=== PATIENT | female | born 1960 | race Caucasian/White ===

== ENCOUNTER 2020-08-26 11:07 | Outpatient (REF) | payer OTHER, SELFPAY ==
--- NOTE | ~2020-08-26 | MM_ITS ---
EXAMINATION: MM SCREENING DIGITAL BREAST TOMOSYNTHESIS, BILATERAL CLINICAL INFORMATION: Screening. Asymptomatic. The lifetime risk of breast cancer based on the Tyrer-Cuzick Model is 4%. COMPARISON: Mammography: 08/28/2019, 08/21/2019, 05/30/2018 (2-D only, [facility]), targeted ultrasound right breast 08/28/2019 TECHNIQUE: Digital breast tomosynthesis is performed in both the craniocaudal and mediolateral oblique views along with computer-aided detection (CAD). Synthesized 2D images are generated from the tomosynthesis. FINDINGS: There are scattered areas of fibroglandular density (ACR BI-RADS breast composition Category b). Parenchymal pattern is similar to prior studies. Again, there are fibrocystic changes right breast mid upper outer quadrant. There is stable intramammary node posterior upper outer left breast. Neither breast shows developing density or interval mass or architectural abnormality or abnormal calcifications. No significant changes. MM/MM tomosynthesis screening BI IMPRESSION: No significant changes from prior studies. ASSESSMENT: BI-RADS 2: Benign RECOMMENDATION: Routine annual mammography screening. This patient's information was entered into a reminder system with a target due date for their next mammogram.
== END 2020-08-26 11:08 | disposition home or self-care (01) ==
LOC: HO.MAMMO 11:07
PROVIDERS: PCP Internal Medicine; Visit Provider Internal Medicine
DX: Z12.31 Encounter for screening mammogram for malignant neoplasm of breast (principal)
CPT/HCPCS: 77063; 77067

== ENCOUNTER 2024-01-24 11:37 | Outpatient (REF) | payer OTHER, SELFPAY ==
[2024-01-24 14:24] LABS: Appearance Urine Clear; Color Urine Yellow; Glucose Urine UA Negative (Negative); Leukocyte Esterase Urine Negative (Negative); MANUAL DIFF FLAG NO; Nitrite Urine Negative (Negative); PH 5.5 (5.0-9.0); Urine Blood Negative (Negative); Urine Ketones Negative (Negative); Urine Protein Negative (Neg-Trace)
[2024-01-24 14:29] LABS: Bacteria Urine None Seen (None Seen); Basophils Percent Auto 0.3 % (0-2); Eosinophils Absolute Auto 0.1 X10*3/uL (0.0-0.4); Eosinophils Percent Auto 0.7 % (0-4); Hematocrit 40.4 % (37.0-47.0); Hemoglobin 13.7 g/dl (12.0-16.0); Hyaline Casts Urine 0-2 /LPF (0-2); Imm Gran Abs Auto 0.02 X10*3/uL (0.00-0.03); Imm Gran Pct Auto 0.3 % (0.0-0.4); Lymphocytes Absolute Auto 2.2 X10*3/uL (1.2-4.9); Lymphocytes Percent Auto 31.2 % (20-40); Mean Corpuscular HGB Conc 33.9 g/dl (31.0-35.0); Mean Corpuscular Hemoglobin 31.5 pg (27.0-33.0); Mean Corpuscular Volume 92.9 fL (80.0-98.0); Mean Platelet Volume 11.9 fL (9.4-12.3); Monocytes Absolute Auto 0.7 X10*3/uL (0.1-1.2); Monocytes Percent Auto 9.8 % (2-11); Neutrophils Absolute Auto 4.1 x10*3/uL (2.0-8.3); Neutrophils Percent Auto 57.7 % (45-73); Platelet Count 268 X10*3/uL (160-400); RBC Urine 0-2 /HPF (0-2); Red Blood Count 4.35 X10*6/uL (4.20-5.50); Red Cell Distribution Width 13.3 % (11.0-16.0); Squamous Epithelial Cell Urine 0-2 /HPF (0-2); WBC Urine 0-5 /HPF (0-5); White Blood Count 7.2 X10*3/uL (4.8-10.8)
[2024-01-24 15:01] LABS: Creatinine Urine 96.66 mg/dL; Microalbum/Creatinine Ratio Ur 47.5 ug/mg cr (<30)
[2024-01-24 15:08] LABS: Alanine Aminotransferase 30 U/L (0-31); Albumin Level 4.3 g/dL (3.5-5.0); Alkaline Phosphatase 66 U/L (39-117); Anion Gap 10 (12-20); Aspartate Amino Transferase 35 U/L (5-31); Bilirubin Total 0.4 mg/dL (0.0-1.0); Blood Urea Nitrogen 20 mg/dL (9-16); Calcium 9.7 mg/dL (8.4-10.2); Carbon Dioxide 27 mmol/L (22-29); Chloride 107 mmol/L (96-108); Cholesterol 229 mg/dL (<200); Estimated Glomerular Filt Rate > 60; Glucose Random 141 mg/dL (60-115); HDL Cholesterol 46 mg/dL (>40); LDL Cholesterol Calculated 107 mg/dL (<100); Potassium 3.9 mmol/L (3.3-5.1); Sodium 140 mmol/L (135-145); Total Protein 6.9 g/dL (6.5-8.0); Triglycerides 382 mg/dL (<150)
[2024-01-24 15:27] LABS: TSH reflex Free T4 1.02 uIU/mL (0.32-4.0)
== END 2024-01-24 11:38 | disposition home or self-care (01) ==
LOC: HO.CHCLDS 11:37
PROVIDERS: Visit Provider Internal Medicine
DX: E78.00 Pure hypercholesterolemia, unspecified (principal); E11.9 Type 2 diabetes mellitus without complications; Z79.4 Long term (current) use of insulin
CPT/HCPCS: 36415; 80053; 80061; 81001; 82043; 82570; 84443; 85025

== ENCOUNTER 2024-01-26 09:26 | Outpatient (REF) | payer OTHER, SELFPAY ==
[2024-01-27 04:03] LABS: HBS Num1 0.36 mIU/mL (0-7.99); ~HepC Num1 0.12 S/CO (0.00-0.79); ~Hepatitis B Surface Antibody NONREACTIVE (Nonreactive); ~Hepatitis C Antibody Nonreactive (Nonreactive)
== END 2024-01-26 09:27 | disposition home or self-care (01) ==
LOC: HO.CHCLDS 09:26
PROVIDERS: Visit Provider Internal Medicine
DX: R74.01 Elevation of levels of liver transaminase levels (principal)
CPT/HCPCS: 36415; 86706; 86803

== ENCOUNTER 2024-11-07 11:08 | Outpatient (REF) | payer OTHER, SELFPAY ==
--- OUTSIDE RECORDS SUMMARY | 2024-11-07 12:37 | XMS_ITS | Clinical Summary ---
Author Organization [facility] Address [address] [place] [address] Phone Care Team Providers Care Recreation Program Specialist Name Role Phone Jodie Sher MD Primary Care Provider [phone] Encounters Date Type Department Care Team Description 11/07/2024 11:46 AM EDT Hospital Encounter [facility] Xray [address] [place] [address] Pain in left wrist; Pain in right wrist from Last 3 Months Surgical History Surgery Date Site/Laterality Comments TUBAL LIGATION PROCEDURE: HISTORICAL TUBAL LIGATION EYE SURGERY PROCEDURE: HISTORICAL EYE SURGERY BELT ABDOMINOPLASTY PROCEDURE: HISTORICAL TUMMY TUCK OTHER SURGICAL HISTORY PROCEDURE: HISTORICAL UNSPECIFIED SURGERY; COMMENT: nose surgery as a child Medical History Medical History Date Comments DM (diabetes mellitus), type 2 with renal complications (CMS/HCC V24, CMS/HCC V28) 03/23/2017 DX:DM (diabetes mellitus), t ype 2 with renal complications ([facility]) Allergic rhinitis 04/23/2017 DX:Allergic rh initis Migraines 04/23/2017 DX:Migraines Insomnia 04/23/2017 DX:Insomnia Family History Medical History Relation Name Comments Depression Father suicide 55 Diabetes Mother HTN, migraine, hyperlipidemia, CAD, 55 Uterine cancer Mother Stroke Sister 1 59 Uterine cancer Sister 1 Coronary artery disease Sister 2 52 Uterine cancer Sister 2 Uterine cancer Sister 3 Uterine cancer Sister 4 Breast cancer Neg Hx Colon cancer Neg Hx Ovarian cancer Neg Hx Relation Name Status Comments Father Mother Sister 1 Sister 2 Sister 3 Sister 4 Social History Tobacco Use Types Packs/Day Years Used Date Smoking Tobacco: Never Smokeless Tobacco: Never Alcohol Use Standard Drinks/Week Comments No 0 (1 standard drink = 0.6 oz pur e alcohol) Comments Unknown Sex and Gender Information Value Date Recorded Sex Assigned at Female 04/29/2024 12:30 PM EDT Legal Sex Female 5:44 AM EST Gender Identity Female 04/29/2024 12:30 PM EDT Sexual Orientation Straight 04/29/2024 12 :30 PM EDT Obstetrics History Plan of Treatment Upcoming Encounters Date Type Department Care Team (Latest Contact Info) Description 11/07/2024 11:46 AM EDT Hospital Encounter [facility] Xray [address] [place] [address] Pain in left wrist; Pain in right wrist Health Maintenance Due Date Last Done Comments Diabetes: Annual Foot Exam 1970 Diabetes: Annual Retina Eye Exam 1970 Hepatitis A Vaccines (1 of 2 - Risk 2-dose series) 10/28/1979 Hepatitis B Vaccines (1 of 3 - Risk 3-dose series) 2020 RSV Immunization Adult Patients (1 - Risk 60-74 years 1-dose series) 2020 Cervical Cancer Screening: Pap Smear 01/24/2021 01/24/2018 HIV Screening 05/31/2022 Medicare Annual Wellness Visit 05/31/2022 Social Influencers of Health Screening 05/31/2022 Diabetes: Annual Urine Albumin-Creatinine Ratio (uACR) 06/12/2022 Depression Screening 10/01/2023 09/30/2022 COVID-19 Vaccine ( season) 2024 06/05/2022, 06/04/2021, 11/28/2020, Additional history exists Diabetes: Blood Sugar Control Test (HGBA1C) 10/25/2024 08/10/2024, 04/27/2024, 01/24/2024 Influenza Vaccine (Season Ended) 2025 05/23/2018, 05/20/2018 Diabetes: Annual GFR (Glomerular Filtration Rate) 04/27/2025 04/27/2024 Hypertension/CHF/CAD Annual BMP Blood Test 04/27/2025 04/27/2024 Breast Cancer Screening 09/26/2025 09/27/19 24, 09/21/2022, 09/17/2021, Additional history exists Colorectal Cancer Screening: FIT-DNA (Cologuard) 05/03/2027 05/03/2024 DTaP,Tdap,and Td Vaccines (2 - Td or Tdap) 01/18/2028 01/17/2018 Cholesterol Screening (Lipid Panel) 01/23/2029 01/24/2024 Zoster Vaccines Completed 08/24/2019, 06/05/2019 Pneumococcal Vaccine: 50+ Years Completed 01/24/2024, 01/17/2018 Pneumococcal Vaccine: Pediatrics (0 to 5 Years) and At-Risk Patients (6 to 64 Years) Aged Out 01/24/2024, 01/17/2018 No longer eligibl e based on patient's age to complete this topic Hepatitis C Screening Completed 01/26/2024 HIB Vaccines Aged Out No longer eligi ble based on patient's age to complete this topic HPV Vaccines Aged Out No longer eligi ble based on patient's age to complete this topic IPV Vaccines Aged Out No longer eligi ble based on patient's age to complete this topic MMR Vaccines Aged Out No longer eligi ble based on patient's age to complete this topic Meningococcal ACWY Vaccine Aged Out N o longer eligible based on patient's age to complete this topic Meningococcal B Vaccine Aged Out No l onger eligible based on patient's age to complete this topic RSV Immunization Patients Under 20 months Aged Out No longer eligible based on patient's age to complete this topic Varicella Vaccines Aged Out No longer eligible based on patient's age to complete this topic Procedures Procedure Name Priority Date/Time Associated Diagnosis Comments [facility] SCREENING DIGITAL Routine 09/27/2023 1:44 PM EDT Encounter for screening mammogram for malignant neoplasm of breast PAP SMEAR Routine 01/24/2018 from Last 3 Months or Most Recently Relevant to Health Maintenance Results * MARTHA SCREENING DIGITAL (09/27/2023 1:44 PM EDT) Anatomical Region Laterality Modality Mammography 09/27/2023 9:04 AM EDT Narrative 09/27/2023 1:44 PM EDT [facility] Diagnostic Imaging Department [address] [place] [id number] Patient: ??DAVIS AVELAR ?/Age/Sex: 1960 - 62 - F Unit#: ??[id number] ? Location/Status: ??SPDIMAM/REG CLI ? Mnemonic/Ordering Site: ??DIGSC/SPMAM Ordering Physician: ??JODIE SHER [facility] Screening Digital - 09/27/23 - 916 Report Status:Signed EXAM: [facility] Screening Digital EXAM DATE AND TIME: 09/27/2023 9:17 AM HISTORY: ??Screening. COMPARISON: ??09/21/22, 09/17/21, 08/26/20 TECHNIQUE: Bilateral digital breast tomosynthesis was performed in the CC and MLO projections. Computer aided detection with [employer] 3D 3.1 was employed. TISSUE DENSITY: b. There are scattered areas of fibroglandular density. FINDINGS: No suspicious masses, grouped microcalcifications, or areas of architectural distortion are seen. Scattered microcalcifications are noted. The skin and vascularity are unremarkable. IMPRESSION: Stable mammographic appearance of the breasts. ??No evidence of malignancy is seen. A negative mammogram in the presence of a clinically suspicious palpable abnormality does not preclude the possibility of malignancy or alter the indications for biopsy. BI-RADS: ??Category 2: Benign RECOMMENDATION(S): 1: Routine screening mammogram BILATERAL in 1 year. Dictating Physician: ??MAVIS GUERRERO MD Electronically Signed by: ??MAVIS GUERRERO MD Dic Date/Time: ??09/27/23 1344 Sign date/Time: ??09/27/23 1344 Procedure Note Mavis Guerrero MD - 02/14/2024 [facility] Diagnostic Imaging Department [address] [place] [id number] Patient: ESTEFANIDAVIS HOLGUINO.B./Age/Sex: 1960 - 62 - F Unit#: [id number] Location/Status: [facility] CLI Mnemonic/Ordering Site: [facility] Ordering Physician: JODIE SHER [facility] Screening Digital - 09/27/23 - 916 Report Status:Signed EXAM: [facility] Screening Digital EXAM DATE AND TIME: 09/27/2023 9:17 AM HISTORY: Screening. COMPARISON: 09/21/22, 09/17/21, 08/26/20 TECHNIQUE: Bilateral digital breast tomosynthesis was performed in the CCand MLO projections. Computer aided detection with [employer] 3D 3.1was employed. TISSUE DENSITY: b. There are scattered areas of fibroglandular density. FINDINGS: No suspicious masses, grouped microcalcifications, or areas ofarchitectural distortion are seen. Scattered microcalcifications are noted. The skinand vascularity are unremarkable. IMPRESSION: Stable mammographic appearance of the breasts. No evidence of malignancyis seen. A negative mammogram in the presence of a clinically suspicious palpable abnormality does not preclude the possibility of malignancy or alter the indications for biopsy. BI-RADS: Category 2: Benign RECOMMENDATION(S): 1: Routine screening mammogram BILATERAL in 1 year. Dictating Physician: MAVIS GUERRERO MD Electronically Signed by: MAVIS GUERRERO MD Dic Date/Time: 09/27/23 1344 Sign date/Time: 09/27/23 1344 us Jodie Sher MD IMG BI PROCEDURES Final R esult * Pap smear (01/24/2018) 01/24/2018 Narrative HISTORICAL TESTING LAB RESULTING AGENCY - 01/26/2018 5:07 PM EDT [id number] THINPREP PAP, IMAGED: NEGATIVE FOR SQUAMOUS INTRAEPITHELIAL LESION AND MALIGNANCY ??. RESULT OF APTIMA HIGH RISK HPV ASSAY: ? NEGATIVE ?? (SEROTYPES 16,18,31,33,35,39,45,51,52,56,58,59,66,68) MICKI NELSON(ASCP) (CASE ELECTRONICALLY SIGNED 01 26 2018) ADEQUACY: SATISFACTORY. ENDOCERVICAL/TRANSFORMATION ZONE COMPONENT PRESENT. SOURCE: THINPREP PAP HPV ANY DX: ??REFLEX 16 AND 18, CERVICAL, IMAGED: CLINICAL INFORMATION: HPV ANY DIAGNOSIS. Z12.4, Z01.419 us Sandrita Gilbert MD LAB CYTOLOGY ORDERABLES Final Result HISTORICAL TESTING LAB RESULTING AGENCY from Last 3 Months or Most Recently Relevant to Health Maintenance Insurance [facility] MEDICARE Member Subscriber Plan / Payer (Ef fective 2018-Present) Name:Davis Avelar Relation to Subscriber:Self Name:Davis Avelar Payer ID:[id number] Group ID:[id number] Type:Not on file Address: [place] [address] [place] [id number] Care Teams Recreation Program Specialist Relationship Specialty Start Date End Date Jodie Sher MD [address] [place] [id number] PCP - General Internal Medicine 04/29/24
--- OUTSIDE RECORDS SUMMARY | 2024-11-07 12:37 | XMS_ITS | Encounter Summary ---
Author Organization [employer] Address [address] [facility] [address] [place] [address] Care Team Providers Care Wiper Blender Name Role Phone Steven Sher MD Primary Care Provider Reason for Visit * Reason Comments Med Refill Encounter Details Date Type Department Care Team (Late st Contact Info) Description 07/31/2024 Refill [facility] MEDICINE [address] [place] [address] Steven Sher MD [address] [place], [place] [id number] Social History Tobacco Use Types Packs/Day Years Used Date Smoking Tobacco: Never Passive Smoke Exposure: Never Smokeless Tobacco: Never Alcohol Use Standard Drinks/Week Comments Never 0 (1 standard drink = 0.6 oz pur e alcohol) Depression Answer Date Recorded Patient Health Questionnaire-9 Score 4 09/30/2022 Housing Stability Answer Date Recorded What is your housing situation today? I have alejandra baker 04/19/[address] you li ve. Do you have problems with any of the following? None of the above 04/19/2023 Food Insecurity Answer Date Recorded Within the past 12 months, y ou worried that your food would run out before you got money to buy more: Never True 04/19/2023 Within the past 12 months,th e food you bought just didn't last and you didn't have enough money to get more: Never True Transportation Answer Date Recorded In the past 12 months, has l ack of transportation kept you from medical appts, meetings, work or from getting things needed for daily living? No 04/19/2023 Utilities Answer Date Recorded In the past 12 months, has t he electric, gas, oil or water company threatened to shut off services in your home? No 04/19/2023 Depression Answer Date Recorded Patient Health Questionnaire-2 Score 2 09/30/2022 Comments Unknown Sex and Gender Information Value Date Recorded Sex Assigned at Female 04/27/2022 10:24 AM EDT Legal Sex Female 10:24 AM EDT Gender Identity Female 04/27/2022 10:24 AM EDT Sexual Orientation Straight 04/27/2022 10 :24 AM EDT documented as of this encounter Plan of Treatment Upcoming Encounters Date Type Department Care Team (Late st Contact Info) Description 12/25/2024 10:00 AM EDT Office Visit [facility] ADULT D[facility]AL [address] [place] [address] Godfrey Sher 02/08/2025 10:30 AM EDT Office Visit [facility] MED & PEDS [address] [place] [address] Steven Sher MD [address] [place] [address] documented as of this encounter Visit Diagnoses Not on filedocumented in this encounter Additional Health Concerns Assessment Noted Time PHQ-9 Depression Total Score: 4 10/01/19 23 10:38 AM EDT documented as of this encounter Care Teams Wiper Blender Relationship Specialty Start Date End Date Steven Sher MD [address] [place] [address] PCP - General Internal Medicine 07/06/18 documented as of this encounter
--- OUTSIDE RECORDS SUMMARY | 2024-11-07 12:37 | XMS_ITS | Encounter Summary ---
Author Organization [employer] Address [address] [facility] [address] [place] [address] Care Team Providers Care International Marketing Coordinator Name Role Phone Steven Sher MD Primary Care Provider Encounter Details Date Type Department Care Team (Late st Contact Info) Description 04/28/2023 Abstract [facility] MEDICINE [address] [place] [address] Laura Vickers Social History Tobacco Use Types Packs/Day Years [...] Description 12/25/2024 10:00 AM EDT Office Visit [facility] [address] [place] [address] Godfrey Sher 02/08/2025 10:30 AM EDT Office Visit [facility] MED & PEDS [address] [place] [address] Steven Sher MD [address] [place] [address] documented as of this encounter Visit Diagnoses Not on filedocumented in this encounter Additional Health Concerns Assessment Noted Time PHQ-9 Depression Total Score: 4 10/01/19 23 10:38 AM EDT documented as of this encounter Care Teams International Marketing Coordinator Relationship Specialty Start Date End Date Steven Sher MD [address] [place] [address] PCP - General Internal Medicine 07/06/18 documented as of this encounter
--- OUTSIDE RECORDS SUMMARY | 2024-11-07 12:37 | XMS_ITS | Encounter Summary ---
Author Organization [facility] Address [address] [place] [address] Care Team Providers Care Airline Captain Name Role Phone Steven Sher MD Primary Care Provider [phone] Encounter Details Date Type Department Care Team (Latest Contact Info) Description 11/07/2024 11:46 AM EDT Hospital Encounter [facility] Xray [address] [place] [address] Pain in left wrist; Pain in right wrist Social History Tobacco Use Types Packs/Day Years [...] Orientation Straight 04/29/2024 12 :30 PM EDT documented as of this encounter Plan of Treatment Pending Results Name Type Priority Associated Diagnoses Date /Time XR Wrist 3+ Views bilat Imaging Routine Pain in left wrist Pain in right wrist 11/07/2024 12:24 PM EDT Scheduled Orders Name Type Priority Associated Diagnoses Orde r Schedule XR Wrist 3+ Views bilat Imaging Routine Pain in left wrist Pain in right wrist Once for 1 Occurrences starting 11/07/2024 until 11/07/2024 documented as of this encounter Visit Diagnoses Diagnosis Pain in left wrist Pain in joint, forearm Pain in right wrist Pain in joint, forearm documented in this encounter Care Teams Airline Captain Relationship Specialty Start Date End Date Steven Sher MD [address] [place] [address] PCP - General Internal Medicine 04/29/24 documented as of this encounter
--- OUTSIDE RECORDS SUMMARY | 2024-11-07 12:37 | XMS_ITS | Clinical Summary ---
Author Organization [employer] Address [address] [facility] [address] [place] [address] Care Team Providers Care Air Pollution Control Engineer Name Role Phone Steven Sher MD Primary Care Provider Allergies No known active allergies Medications * This document contains information received from the source organization and may not represent a complete record from that organization. gabapentin (Neurontin) 100 MG capsule Take 2 capsules by mouth every 8 (eight) hours. Active Trulicity 0.75 MG/0.5ML solution pen-injector Active methocarbamol (Robaxin) 750 MG tablet Take 1 tablet by mouth every 6 (six) hours. Active glimepiride (Amaryl) 1 MG tablet Take 1 tablet by mouth every 12 (twelve) hours. Active FLUoxetine (PROzac) 20 MG tablet Take 20 mg by mouth. Active SUMAtriptan (Imitrex) 25 MG tablet TAKE 1 TABLET BY MOUTH 1 TIME AT ONSET OF MIGRAINE WITH FLUID. MAY REPEAT AFTER 2 HOURS. IF HEADACHE RETURNS. NOT TO EXCEED 200 MGIN 24 HOURS Active zoster vaccine-recombinant adjuvanted (Shingrix) 50 MCG/0.5ML vaccine Inject 0.5 mL into the shoulder, thigh, or buttocks. Active Misc. Devices misc To wear daily Active hydrocortisone (Anusol-HC) 2.5 % rectal cream Insert into the rectum 2 times daily. 28 g Active Additional Information Patient not taking.Reported on 09/04/2024 metFORMIN (Glucophage) 500 MG tablet Take 1 tablet (500 mg) by mouth every 12 (twelve) hours. 60 tablet 11 Active Additional Information Patient not taking.Reported on 09/04/2024 clonazePAM (KlonoPIN) 0.5 MG tablet Take 0.5 mg by mouth 2 times daily. Active lisinopril 10 MG tabletIndications:T ype 2 diabetes mellitus without complication, with long-term current use of insulin ([facility]),Primary hypertension Take 1 tablet (10 mg) by mouth Once per day. 30 tablet 11 024 2024 Active fenofibrate (Tricor) 48 MG tabletIndications:H ypercholesterolemia Take 1 tablet (48 mg) by mouth Once per day. 30 tablet 11 024 2024 Active Tirzepatide (Mounjaro) 2.5 MG/0.5ML solution pen-injectorIndicat ions:Type 2 diabetes mellitus without complication, with long-term current use of insulin ([facility]) Inject 2.5 mg under the skin 1 (one) time per week. 2 mL 3 Active Additional Information Patient not taking.Reported on 09/04/2024 ezetimibe (Zetia) 10 MG tabletIndications:H ypercholesteremia Take 1 tablet (10 mg) by mouth Once per day. 30 tablet 024 2024 Active Sodium Fluoride 1.1 % creamIndications:De ntin hypersensitivity [place] teeth for 2 minutes, morning and night. Spit, do not rinse. Do not eat or drink anything for 30 minutes following use. 112 g 3 Active atorvastatin (Lipitor) 40 MG tabletIndications:H ypercholesterolemia Take 1 tablet (40 mg) by mouth Once per day. 90 tablet 3 025 2025 Active empagliflozin (Jardiance) 25 MGIndications:Type 2 diabetes mellitus without complication, with long-term current use of insulin ([facility]) Take 1 tablet (25 mg) by mouth Once per day. 30 tablet 11 025 2025 Active Additional Information Patient not taking.Reported on 09/04/2024 Diclofenac Sodium 1 % gelIndications:Prim mingo osteoarthritis of both knees Apply (2G) by topical route 2 times every day to the affected area(s) 100 g 2 025 Active Additional Information Patient not taking.Reported on 09/04/2024 clotrimazole (Lotrimin) 1 % creamIndications:Ti patrick pedis of both feet Apply topically 2 times daily. 30 g 2 025 Active Additional Information Patient not taking.Reported on 09/04/2024 empagliflozin (Jardiance) 10 MG TAKE 1 TABLET BY MOUTH EVERY MORNING 30 tablet 1 025 Active glucose blood (FREESTYLE LITE) test stripIndications:Ty pe 2 diabetes mellitus with diabetic neuropathy, with long-term current use of insulin ([facility]) FS fasting and 2 hours after dinner. 100 each 11 Active amitriptyline (Elavil) 10 MG tablet TAKE 1 TABLET BY MOUTH EVERY NIGHT AT BEDTIME 30 tablet 1 025 Active Tirzepatide 2.5 MG/0.5ML solution auto-injectorIndica tions:Class 1 obesity due to excess calories with serious comorbidity and body mass index (BMI) of 31.0 to 31.9 in adult Inject 2.5 mg under the skin 1 (one) time per week. 2 mL 1 025 Active amitriptyline (Elavil) 10 MG tablet TAKE 1 TABLET BY MOUTH EVERY NIGHT AT BEDTIME 30 tablet 1 025 2024 Discontinued Active Problems Problem Noted Date Diagnosed Date Primary hypertension 04/26/2024 Diabetic polyneuropathy asso ciated with type 2 diabetes mellitus 04/26/2024 Poor balance 02/01/2024 Myalgia 08/19/2022 Assessment & Plan (08/19/2022 10:47 AM EST): Patient complains of headaches and myalgia that have been worsening since about 2 weeks, refer all started after taking zetia 10mg. Denied urine colo changes, no bleeding, will order labs, told to hold medication, told her if her results were stable she will need statin therapy due to her elevated ASCVD risk Depressive disorder 06/24/2022 Hypercholesterolemia 06/24/2022 Type 2 diabetes mellitus 06/24/2022 Encounters * This document contains information received from the source organization and may not represent a complete record from that organization. Date Type Department Care Team Description 11/07/2024 10:00 AM EDT Office Visit [facility] [address] [place] [address] Steven Sher MD Depressive disorder (Primary Dx); Type 2 diabetes mellitus without complication, with long-term current use of insulin ([facility]); Left wrist pain; Right wrist pain; Dietary counseling; Exercise counseling; Class 1 obesity due to excess calories with serious comorbidity and body mass index (BMI) of 31.0 to 31.9 in adult; Primary osteoarthritis of both knees; Hypercholesterolemia 11/07/2024 Travel 10/31/2024 Telephone [facility] [address] [place] [phone] Steven Sher MD Med Refill 10/28/[address] [address] Steven Sher MD 10/13/2024 Telephone [facility] [address] [place] [phone] Steven Sher MD 09/27/2024 Telephone [facility] [address] [place] [address] Steven Sher MD Med Refill 09/27/2024 Telephone [facility] [address] [place] [address] Steven Sher MD Med Refill 09/13/2024 11:30 AM EDT Office Visit [facility] [address] [place] [address] Hamilton Germain, MEGAN Full coverage crown needed for tooth at risk for fracture (Primary Dx) 09/06/2024 Refill [facility] [address] [place] [address] Steven Sher MD Type 2 diabetes mellitus with diabetic neuropathy, with long-term current use of insulin ([facility]) 09/06/2024 Refill [facility] [address] [place] [address] Steven Sher MD Type 2 diabetes mellitus with diabetic neuropathy, with long-term current use of insulin ([facility]) 09/04/2024 9:00 AM EDT Office Visit [facility] [address] [place] [address] Hamilton Germain DMD Full coverage crown needed for tooth at risk for fracture (Primary Dx) 08/17/2024 Orders Only [facility] [address] [place] [address] Steven Sher MD Tinea pedis of both feet 08/16/2024 Telephone [facility] [address], [place] [phone] Steven Sher MD Med Refill 08/16/2024 Refill [facility] [address], [place] [phone] Steven Sher MD Tinea pedis of both feet 08/15/2024 Refill [facility] [address] [place] [address] Steven Sher MD Primary osteoarthritis of both knees 08/10/2024 9:45 AM EST Office Visit [facility] [address] [place], [place] [phone] Steven Sher MD Hypercholesterolemia (Primary Dx); Type 2 diabetes mellitus without complication, with long-term current use of insulin ([facility]); Primary osteoarthritis of both knees 08/10/2024 Travel from Last 3 Months Immunizations Name Administration Dates Next Due Influenza Injectable Quadriv alant Preservative Free IIV4 MDCK 05/23/2018 Influenza injectable quadriv alent preservative free 05/20/2018 Moderna Covid-19 Vaccine 12+ 06/04/2021,11/29/19 21,10/30/2020 Pneumococcal Conjugate PCV 20 01/24/2024 Pneumococcal Polysaccharide PPSV23 01/17/2018 Tdap 01/17/2018 Zoster, Recombinant 08/24/2019,06/05/2019 Social History Tobacco Use Types Packs/Day Years Used Date Smoking Tobacco: Never Passive Smoke Exposure: Never Smokeless Tobacco: Never Tobacco Cessation:Counseling Given: Not Answered Alcohol Use Standard Drinks/Week Comments Never 0 (1 standard drink = 0.6 oz pur e alcohol) Depression Answer Date Recorded Patient Health Questionnaire-9 Score 13 11/07/2024 Patient Health Questionnaire-9 Score 13 11/07/2024 Last PHQ-9: Questionnaire Data Not on file 0 11/07/2024 Housing Stability Answer Date Recorded What is your housing situation today? I have alejandra baker 11/07/[address] you li ve. Do you have problems with any of the following? None of the above 11/07/2024 Food Insecurity Answer Date Recorded Within the past 12 months, y ou worried that your food would run out before you got money to buy more: Never True 11/07/2024 Within the past 12 months,th e food you bought just didn't last and you didn't have enough money to get more: Never True Transportation Answer Date Recorded In the past 12 months, has l ack of transportation kept you from medical appts, meetings, work or from getting things needed for daily living? No 11/07/2024 Utilities Answer Date Recorded In the past 12 months, has t he electric, gas, oil or water company threatened to shut off services in your home? No 11/07/2024 Depression Answer Date Recorded Patient Health Questionnaire-2 Score 0 11/07/2024 Internet Access Answer Date Recorded Internet Access Q1 No 11/07/2024 Internet Access Q2 Not on file 11/07/2024 Comments Unknown Sex and Gender Information Value Date Recorded Sex Assigned at Female 04/27/2022 10:24 AM EDT Legal Sex Female 10:24 AM EDT Gender Identity Female 04/27/2022 10:24 AM EDT Sexual Orientation Straight 04/27/2022 10 :24 AM EDT Last Filed Vital Signs Vital Sign Reading Time Taken Comments Blood Pressure 127/63 11/07/2024 10:02 AM EDT Pulse 65 11/07/2024 10:02 AM EDT Temperature 36.6 ??C (97.9 ??F) 11/07/2024 10:02 AM E DT Respiratory Rate 20 11/07/2024 10:02 AM EDT Oxygen Saturation 99% 11/07/2024 10:02 AM EDT Inhaled Oxygen Concentration - - Weight 78.9 kg (174 lb) 11/07/2024 10:02 AM EDT Height 159 cm (5' 2.6 ) 11/07/2024 10:02 AM EDT Body Mass Index 31.22 11/07/2024 10:02 AM EDT Plan of Treatment Upcoming Encounters Date Type Department Care Team (Late st Contact Info) Description 12/25/2024 10:00 AM EDT Office Visit [facility] [address] [place] [address] Godfrey Sher 02/08/2025 10:30 AM EDT Office Visit [facility] [address] [place] [address] Steven Sher MD [address] [place] [address] Health Maintenance Due Date Last Done Comments CT Colonography 1960 Colonoscopy 1960 FIT 1960 FOBT 1960 HIV Screening 1960 Sigmoidoscopy 1960 Diabetes: Foot Exam 1970 Eye Exam 1970 Mammogram 09/18/2023 09/17/2022, 0306/2020, 08/26/2020, Additional history exists COVID-19 Vaccine ( season) 2024 06/05/2022, 06/04/2021, 11/28/2020, Additional history exists Pap Smear 08/05/2024 08/05/2021 Dental Oral Exam 12/22/2024 06/22/2024, , 07/05/2023, Additional history exists Dental Prophylaxis 12/22/2024 06/22/2024, 0 12/17/2023, 07/05/2023, Additional history exists Influenza Vaccine (#1) 2024 05/23/2018, 2017 Postponed from 02/27/2024 (Patient Refused) Diabetes: Urine Protein Screening 01/23/2025 01/24/2024, 08/09/2020, 06/07/2019 Lipid Panel 01/23/2025 01/24/2024, 04/0 10/2022, 05/26/2022, Additional history exists Diabetes: Hemoglobin A1C 02/07/2025 08/10/2024, 12/27 Dental X-Ray: Bitewings 06/23/2025 06/22/20 24, 07/05/2023, 09/25/2022, Additional history exists Tobacco Screening 09/13/2025 09/13/2024 Alcohol/Substance Use Screening 11/07/2025 11/07/2024 Depression Screening 11/07/2025 11/07/2024, 11/08/19 SDOH Screening 11/07/2025 11/07/2024 Cervical Cancer Screening 08/05/2026 HPV/Cotest 08/05/2026 08/05/2021 Colorectal Cancer Screening 05/03/2027 FIT DNA/Cologuard 05/03/2027 05/03/2024 Dental X-Ray: Full Mouth 06/23/2027 06/22/2024 DTaP/Tdap/Td Vaccines (2 - Td or Tdap) 01/18/2028 01/17/2018 RSV Patients and Patients Aged 60 years or older (1 - 1-dose 75+ series) 10/28/2035 Zoster Vaccines Completed 08/24/2019, 06/05/2019 Pneumococcal Vaccine: 50+ Years Completed 01/24/2024, 01/17/2018 Hepatitis C Screening Completed 01/26/2024 HIB Vaccines Aged Out No longer eligi ble based on patient's age to complete this topic HPV Vaccines Aged Out No longer eligi ble based on patient's age to complete this topic Hepatitis A Vaccines Aged Out No long er eligible based on patient's age to complete this topic Hepatitis B Vaccines Aged Out No long er eligible based on patient's age to complete this topic IPV Vaccines Aged Out No longer eligi ble based on patient's age to complete this topic Meningococcal Vaccine Aged Out No giancarlo jayleen eligible based on patient's age to complete this topic RSV under 20 months Aged Out No longe r eligible based on patient's age to complete this topic Rotavirus Vaccines Aged Out No longer eligible based on patient's age to complete this topic Procedures Procedure Name Priority Date/Time Associated Diagnosis Comments CASE PRESENTATION, DETAILED AND EXTENSIVE TREATMENT PLANNING Routine 09/13/2024 11:30 AM EDT Full coverage crown needed for tooth at risk for fracture 12 CROWN - PORCELAIN/CERAMIC Routine 09/13/2024 11:30 AM EDT Full coverage crown needed for tooth at risk for fracture CASE PRESENTATION, DETAILED AND EXTENSIVE TREATMENT PLANNING Routine 09/04/2024 9:00 AM EDT Full coverage crown needed for tooth at risk for fracture 12 CROWN PREP Routine 09/04/2024 9:00 AM EDT Full coverage crown needed for tooth at risk for fracture POCT GLUCOSE Routine 08/10/2024 9:54 AM EST Type 2 diabetes mellitus without complication, with long-term current use of insulin ([facility]) POCT GLYCATED HEMOGLOBIN, TOTAL Routine 08/10/2024 9:54 AM EST Type 2 diabetes mellitus without complication, with long-term current use of insulin ([facility]) PROPHYLAXIS - ADULT Routine 06/22/2024 1 0:00 AM EST Dentin hypersensitivity Full coverage crown needed for tooth at risk for fracture INTRAORAL - COMPLETE SERIES OF RADIOGRAPHIC IMAGES Routine 06/22/2024 10:00 AM EST Dentin hypersensitivity Full coverage crown needed for tooth at risk for fracture PERIODIC ORAL EVALUATION - ESTABLISHED PATIENT Routine 06/22/2024 10:00 AM EST Dentin hypersensitivity Full coverage crown needed for tooth at risk for fracture LAB COLOGUARD?? COLON CANCER SCREEN Routine 05/03/2024 12:00 PM EST Screening for colon cancer HEPATITIS C AB W/REFL TO HCV RNA, QN, PCR Routine 01/26/2024 9:28 AM EDT Transaminitis ALBUMIN, RANDOM URINE W/CREATININE Routine 01/24/2024 11:40 AM EDT Type 2 diabetes mellitus without complication, without long-term current use of insulin ([facility]) LIPID PANEL, STANDARD Routine 01/24/2024 11:40 AM EDT Hypercholesterolemi a Type 2 diabetes mellitus without complication, with long-term current use of insulin ([facility]) THINPREP IMAGING PAP AND HPV MRNA E6/E7 WITH REFLEX TO HPV 16,18/45 Routine 08/05/2021 10:18 AM EST MAMMOGRAM GENERIC Routine 08/26/2020 11: 45 AM EST from Last 3 Months or Most Recently Relevant to Health Maintenance Results * (ABNORMAL) POCT A1C (08/10/2024 9:54 AM EST) Hemoglobin A1C 6.2(A) 4.0 - 6.0 % QC Media Lot # Comment:[id number] Lot# Expiration Date Comment:04/14/2026 Blood 08/10/2024 9:54 AM EST Steven Sher MD POINT OF CARE TEST ENTER/ED IT ORDERABLES Final Result * POCT glucose manually resulted (08/10/2024 9:54 AM EST) Glucose Blood, POC 139 60 - 200 mg/dL QC Media Lot # Comment:[id number] Lot# Expiration Date Comment:10/03/2024 Blood Capillary blood specimen / Unknown 08/10/2024 9:54 AM EST Steven Sher MD POINT OF CARE TEST ENTER/ED IT ORDERABLES Final Result * Cologuard?? colon cancer screening (05/03/2024 12:00 PM EST) Cologuard Result Negative Negative 05/11/20 24 6:58 PM EST [employer] [facility] (CLIA #:[id number]) Comment: NEGATIVE TEST RESULT. A negative Cologuard result indicates a low likelihood that a colorectal cancer (CRC) or advanced adenoma (adenomatous polyps with more advanced pre-malignant features) ??is present. The chance that a person with a negative Cologuard test has a colorectal cancer is less than 1 in 1500 (negative predictive value >99.9%) or has an ??advanced adenoma is less than ??5.3% (negative predictive value 94.7%). These data are based on a prospective cross-sectional study of 10,000 individuals at average risk for colorectal cancer who were screened with both Cologuard and colonoscopy. (Angeles Sotelo al, N Engl J Med 2014;370(14):1286- 1297) The normal value (reference range) for this assay is negative. COLOGUARD RE-SCREENING RECOMMENDATION: Periodic colorectal cancer screening is an important part of preventive healthcare for asymptomatic individuals at average risk for colorectal cancer. ??Following a negative Cologuard result, the [place] [employer] and U.S. Multi-Society Task Force screening guidelines recommend a Cologuard re-screening interval of 3 years. References: [place] [employer] Guideline for Colorectal Cancer Screening: https://www.cancer.org/cancer/abyiu-ahimiv-yqeusw/yujtodfdz-gttmuleau-kdjkfvw/ac s-rec ommendations.html.; Jam PETERSON, Augusto ROJAS, Racquel MoraK, Colorectal Cancer Screening: Recommendations for Physicians and Patients from the U.S. Multi-Society Task Force on Colorectal Cancer Screening , Am J Gastroenterology 2017; 112:3239-2824. TEST DESCRIPTION: Composite algorithmic analysis of stool DNA-biomarkers with hemoglobin immunoassay. ?? Quantitative values of individual biomarkers are not reportable and are not associated with individual biomarker result reference ranges. Cologuard is intended for colorectal cancer screening of adults of either sex, 45 years or older, who are at average-risk for colorectal cancer (CRC). Cologuard has been approved for use by the U.S. FDA. The performance of Cologuard was established in a cross sectional study of average-risk adults aged 50-84. Cologuard performance in patients ages 45 to 49 years was estimated by sub-group analysis of near-age groups. Colonoscopies performed for a positive result may find as the most clinically significant lesion: colorectal cancer [4.0%], advanced adenoma (including sessile serrated polyps greater than or equal to 1cm diameter) [20%] or non- advanced adenoma [31%]; or no colorectal neoplasia [45%]. These estimates are derived from a prospective cross-sectional screening study of 10,000 individuals at average risk for colorectal cancer who were screened with both Cologuard and colonoscopy. (Angeles Holt, N Engl J Med 2014;370(14):1310-5119.) Cologuard may produce a false negative or false positive result (no colorectal cancer or precancerous polyp present at colonoscopy follow up). A negative Cologuard test result does not guarantee the absence of CRC or advanced adenoma (pre-cancer). The current Cologuard screening interval is every 3 years. ([place] [employer] and U.S. Multi-Society Task Force). Cologuard performance data in a 10,000 patient pivotal study using colonoscopy as the reference method can be accessed at the following location: www.[employer]/results. Additional description of the Cologuard test process, warnings and precautions can be found at www.[employer].com. Stool specimen (specimen) 05/03/2024 12:00 PM EST 05/04/2024 12:20 PM EST us Steven Sher MD LAB MOLECULAR DIAGNOSTICS O RDERABLES Final Result Performing Organization Address City/[facility]/ZIP Co de Phone Number [employer] (CLIA #:[id number]) [address] [place] [address], * Hepatitis C Antibody with Reflex to HCV, RNA, Quantitative, Real-Time PCR (01/26/2024 9:28 AM EDT) Pathologist [facility] Hepatitis C Antibody Nonreactive Nonreactive [facility] Comment:Antibodies to HCV no t detected; does not exclude early acuteHCV infection. Blood Venous blood specimen / Unknown 01/26/2024 9:28 AM EDT 01/26/2024 2:24 PM EDT us Steven Sher MD LAB BLOOD ORDERABLES Final Result [facility] [address] [place] [address] [phone] * (ABNORMAL) Albumin, Random Urine W/Creatinine (01/24/2024 11:40 AM EDT) Creatinine, Urine 96.66 mg/dL [facility] Microalbumin Urine 46.0 mg/L [facility] Microalbum Creatinine Ratio Ur 47.5(H) <30 ug/mg cr [facility] Comment:Albumin/Creatinine R atio Reference Ranges: Normal: < 30 ug/mg creatinine Microalbuminuria: 30 - 300 ug/mg creatinineClinical Albuminuria: > 300 ug/mg creatinine Urine (Urine, Random) 01/24/2024 11:40 AM EDT 01/24/2024 2:19 PM EDT us Steven Sher MD LAB URINE ORDERABLES Final Result [facility] [address] [place] [address] [phone] * (ABNORMAL) Lipid Panel, Standard (01/24/2024 11:40 AM EDT) Triglycerides 382(H) <150 mg/dL [facility] Comment:Desirable Triglyceri de: less than 150 mg/dLBorderline High Triglyceride 150-199 mg/dLHigh Triglyceride: 200-499 mg/dLVery High Triglyceride: greater than or equal to 5OO mg/dL Cholesterol 229(H) <200 mg/dL [facility] Comment:Desirable Cholestero l: less than 200 mg/dLBorderline High Cholesterol: 200-239 mg/dLHigh Cholesterol: greater than 239 mg/dL LDL Cholesterol Calculated 107(H) <100 mg/dL [facility] Comment:Desirable LDL: less than 100 mg/dLNear Optimal/Above Optimal LDL: 110- 129 mg/dLBorderline High LDL: 130-159 mg/dLHigh LDL: 160-189 mg/dLVery High LDL: greater than or equal to 190 mg/dL HDL Cholesterol 46 >40 mg/dL [facility] Comment:Desirable HDL: great er than 40 mg/dL Note: This HDL assay may give artificially low results in patients with liver disease. Blood Venous blood specimen / Unknown 01/24/2024 11:40 AM EDT 01/24/2024 2:13 PM EDT us Steven Sher MD LAB BLOOD ORDERABLES Final Result [facility] [address] [place] [address] [phone] * THINPREP TIS PAP AND HPV mRNA E6/E7 WITH REFLEX TO HPV 16,18/45 (08/05/2021 10:18 AM EST) Clinical Information: JUAN AT [address] [facility] COMMENT SEE COMMENT [facility] Comment: EXPLANATORY NOTE: ? The Pap is a screening test for cervical cancer. It is ?? not a diagnostic test and is subject to false negative ?? and false positive results. It is most reliable when a ?? satisfactory sample, regularly obtained, is submitted ?? with relevant clinical findings and history, and when ?? the Pap result is evaluated along with historic and ?? current clinical information. ?? COMMENT: This Pap test has been evaluated with computer assisted technology. [facility] Gang Sawyer: SEE COMMENT [facility] Comment: DMM, CT(ASCP) CT screening location: [address] ??[id number] HPV nRNA E6/E7 Not Detected Not Detected [facility] Comment: Methodology: Binding Cementer French Cord-Mediated Amplification This assay detects E6/E7 viral messenger RNA (mRNA) from 14 high-risk HPV types (16,18,31,33,35,39,45,51,52,56,58,59,66,68). ? The analytical performance characteristics of this assay have been determined by [employer]. The modifications have not been cleared or approved by the FDA. This assay has been validated pursuant to the CLIA regulations and is used for clinical purposes. ?? For additional information, please refer to http://education.[employer]/faq/HJP066y3 (This link if provided for information/ educational purposes only.) Interpretation/Re sult: Negative for intraepithelial lesion or malignancy. [facility] LMP: NONE G[facility]EN [facility] Prev. BX: NONE [facility]EN [facility] Prev. PAP: 2018 NIL/NEG [facility] SOURCE: None given [facility] Statement Of Adequacy: SEE COMMENT [facility] Comment: Satisfactory for evaluation. Endocervical/transformation zone component present. Age and/or menstrual status not provided 08/05/2021 10:1 8 AM EST us Sun Lucero CNM LAB PATHOLOGY ORDERABLES Final Result [facility] [address] * Mammography Report 1 (08/26/2020 11:45 AM EST) Anatomical Region Laterality Modality Breast Bilateral Mammography 08/26/2020 11:4 5 AM EST Narrative 08/27/2021 12:35 AM EST Refer to the Notes tab for result details [facility] Procedure: Mammography Report 1 Procedure Note Provider, MD Dylan - 09/19/2022 Refer to the Notes tab for result details Legacy Procedure: Mammography Report 1 us Steven Sher MD IMG BI PROCEDURES Final Res ult from Last 3 Months or Most Recently Relevant to Health Maintenance Insurance [facility] ONE CARE < 65 [place] [id number] [facility] Care Teams Air Pollution Control Engineer Relationship Specialty Start Date End Date Steven Sher MD [address] [place] [address] GINA Andrew [address] PCP - General Internal Medicine 07/06/18
--- OUTSIDE RECORDS SUMMARY | 2024-11-07 12:37 | XMS_ITS | Encounter Summary ---
Author Organization [employer] Address [address] [facility] [address] 7t [place] [address] Care Team Providers Care Wall And Floor Tiler Name Role Phone Steven Sher MD Primary Care Provider Encounter Details Date Type Department Care Team (Latest Contact Info) Description 10/14/2023 Orders Only [facility] MED & [facility]EDS [address] [facility] [place] [address] Steven Sher MD 505 [place] [address] Hypercholesterolemia (Primary Dx) Social History Tobacco Use Types Packs/Day Years [...] Description 12/25/2024 10:00 AM EDT Office Visit [facility] ADULT DENTAL [address] [place] [address] Godfrey Sher 02/08/2025 10:30 AM EDT Office Visit [facility] MED & PEDS [address] [place] [address] Steven Sher MD 505 [place] [address] documented as of this encounter Visit Diagnoses Diagnosis Hypercholesterolemia- Primary Pure hypercholesterolemia documented in this encounter Additional Health Concerns Assessment Noted Time PHQ-9 Depression Total Score: 4 10/01/19 23 10:38 AM EDT documented as of this encounter Care Teams Wall And Floor Tiler Relationship Specialty Start Date End Date Steven Sher MD 505 [place] [address] PCP - General Internal Medicine 07/06/18 documented as of this encounter
--- OUTSIDE RECORDS SUMMARY | 2024-11-07 12:37 | XMS_ITS | Encounter Summary ---
Author Organization [employer] Address [address] [facility] [address] [place] [address] Care Team Providers Care Infrastructure Solutions Architect Name Role Phone Steven Sher MD Primary Care Provider Encounter Details Date Type Department Care Team (Latest Contact Info) Description 11/07/2024 Travel Social History Tobacco Use Types Packs/Day Years [...] Description 12/25/2024 10:00 AM EDT Office Visit [facility] ADULT DENTAL 505 [place] [address] Godfrey Sher 02/08/2025 10:30 AM EDT Office Visit [facility] MED & PEDS 505 [place] [address] Steven Sher MD 505 [place] [address] documented as of this encounter Visit Diagnoses Not on filedocumented in this encounter Additional Health Concerns Assessment Noted Time PHQ-9 Depression Total Score: 13 025 11:41 AM EDT documented as of this encounter Care Teams Infrastructure Solutions Architect Relationship Specialty Start Date End Date Steven Sher MD 505 [place] [address] PCP - General Internal Medicine 07/06/18 documented as of this encounter
--- OUTSIDE RECORDS SUMMARY | 2024-11-07 12:37 | XMS_ITS | Encounter Summary ---
Demographics Address [address] [facility] [place] [address] Mobile Phone Work Phone Home Phone Preferred Language es Marital Status Single Sikhism Affiliation Unknown Race White Ethnic Group Unknown Author Organization [employer] Address [address] [address] [facility] [address] [place] [address] Care Team Providers Care Auto Dealership Porter Name Role Phone Steven Sher MD Primary Care Provider [phone] Encounter Details Date Type Department Care Team (Late st Contact Info) Description 10/13/2024 Telephone [facility] MEDICINE 230 [place], [place] [phone] Steven Sher MD [address] [place], [place] [phone] Social History Tobacco Use Types Packs/Day Years Used Date Smoking Tobacco: Never Passive Smoke Exposure: Never Smokeless Tobacco: Never Alcohol Use Standard Drinks/Week Comments Never 0 (1 standard drink = 0.6 oz pur e alcohol) Depression Answer Date Recorded Patient Health Questionnaire-9 Score 4 09/30/2022 Housing Stability Answer Date Recorded What is your housing situation today? I have alejandraedilia baker 04/19/[address] you [...] 12/25/2024 10:00 AM EDT Office Visit [facility] AD[facility] 505 [place] [address] Godfrey Sher 02/08/2025 10:30 AM EDT Office Visit [facility] MED [facility] PEDS 505 [place] [address] Steven Sher MD 505 [place] [address] documented as of this encounter Visit Diagnoses Not on filedocumented in this encounter Additional Health Concerns Assessment Noted Time PHQ-9 Depression Total Score: 4 10/01/19 23 10:38 AM EDT documented as of this encounter Care Teams Auto Dealership Porter Relationship Specialty Start Date End Date Steven Sher MD 505 [place] [address] PCP - General Internal Medicine 07/06/18 documented as of this encounter
--- OUTSIDE RECORDS SUMMARY | 2024-11-07 12:37 | XMS_ITS | Encounter Summary ---
Author Organization [employer] Address [address] [facility] [address] 7t [place] [address] Care Team Providers Care Jacquard Loom Card Changer Name Role Phone Steven Sher MD Primary Care Provider Reason for Visit * Reason Comments Med Refill Encounter Details Date Type Department Care Team (Late st Contact Info) Description 07/31/[address] [facility] MEDICINE 230 [place] [address] Steven Sher MD [address] [place], [place] [phone] Social History Tobacco Use Types Packs/Day Years [...] AM EDT Office Visit [facility] ADULT DENTAL 505 [place] [address] Godfrey Sher 02/08/2025 10:30 AM EDT Office Visit [facility] MED & PEDS 505 [place] [address] Steven Sher MD 505 [place] [address] documented as of this encounter Visit Diagnoses Not on filedocumented in this encounter Additional Health Concerns Assessment Noted Time PHQ-9 Depression Total Score: 4 10/01/19 23 10:38 AM EDT documented as of this encounter Care Teams Jacquard Loom Card Changer Relationship Specialty Start Date End Date Steven Sher MD 505 [place] [address] PCP - General Internal Medicine 07/06/18 documented as of this encounter
--- OUTSIDE RECORDS SUMMARY | 2024-11-07 12:37 | XMS_ITS | Encounter Summary ---
Author Organization [employer] Address [address] 7[address] [place] [address] Care Team Providers Care Space Technologist Name Role Phone Steven Sher MD Primary Care Provider [phone] Reason for Visit * Reason Onset Date Comments New Med Request 02/10/2024 Encounter Details Date Type Department Care Team ([facility] Contact Info) Description 02/10/2024 Telephone [facility] MEDICINE 230 [place] [address] Steven Sher MD [address] [place], [place] [phone] New Med Request Social History Tobacco Use Types Packs/Day Years [...] t he electric, gas, oil or water [employer] threatened to shut off services in your home? No 04/19/2023 Depression Answer Date Recorded Patient Health Questionnaire-2 Score 2 09/30/2022 Comments Unknown Sex and Gender Information Value Date Recorded Sex Assigned at Female 04/27/2022 10:24 AM EDT Legal Sex Female 10:24 AM EDT Gender Identity Female 04/27/2022 10:24 AM EDT Sexual Orientation Straight 04/27/2022 10 :24 AM EDT documented as of this encounter Miscellaneous Notes * Telephone Encounter - Mallory Golden RN - 02/10/2024 1:25 PM EDT Telephone call returned to patient in regards to below message. Patient stated she was told by PCP she needs to get labs done prior to starting new medication Monjuaro. Patient verbalized understanding and denied having any further questions or concerns at this time. * Telephone Encounter - Josselin Berry - 02/10/2024 12:24 PM EDT Tc from pt requesting a new script, pt is requesting Curtis. documented in this encounter Plan of Treatment Upcoming Encounters Date Type Department Care Team (Late st Contact Info) Description 12/25/2024 10:00 AM EDT Office Visit [facility] ADULT DENTAL 505 [place] [address] Godfrey Sher 02/08/2025 10:30 AM EDT Office Visit [facility] MED & PEDS 505 [place] [address] Steven Sher MD 505 [place] [address] documented as of this encounter Visit Diagnoses Not on filedocumented in this encounter Additional Health Concerns Assessment Noted Time PHQ-9 Depression Total Score: 4 10/01/19 23 10:38 AM EDT documented as of this encounter Care Teams Space Technologist Relationship Specialty Start Date End Date Steven Sher MD [address] [place] [address] PCP - General Internal Medicine 07/06/18 documented as of this encounter
--- OUTSIDE RECORDS SUMMARY | 2024-11-07 12:37 | XMS_ITS | Encounter Summary ---
Author Organization [employer] Address [address] [place] [address] 7 [place] [address] Care Team Providers Care Dimensional Engineer Name Role Phone Steven Sher MD Primary Care Provider [phone] Reason for Referral * Consultation (Routine) - Authorized Specialty Diagnoses / Procedures Referred By Jayjay igbson Referred To Contact Nutrition Diagnoses Type 2 diabetes mellitus without complication, with long-term current use of insulin (CMS/[facility]) Class 1 obesity due to excess calories with serious comorbidity and body mass index (BMI) of 31.0 to 31.9 in adult Steven Sher MD [address] [place] [address] Phone: tel: fax: Referral ID Status Reason Start Date Expiration Date Visits Requested Visits Authorized [id number] Authorized Consult and Treat 11/07/2024 11/07/2025 1 1 * Consultation (Routine) - Authorized Specialty Diagnoses / Procedures Referred By Jayjay gibson Referred To Contact Behavioral Health Diagnoses Depressive disorder Steven Sher MD [address] [place] [address] Phone: tel: fax: Referral ID Status Reason Start Date Expiration Date Visits Requested Visits Authorized [id number] Authorized Specialty Services Required 11/07/2024 11/07/2025 1 1 Reason for Visit * Reason Comments left wrist pain Encounter Details Date Type Department Care Team (Latest Contact Info) Description 11/07/2024 10:00 AM EDT Office Visit [facility] MED & PEDS [address] [place] [address] Steven Sher MD [address] [place] [address] Depressive disorder (Primary Dx); Type 2 diabetes mellitus without complication, with long-term current use of insulin (CMS/HCC); Left wrist pain; Right wrist pain; Dietary counseling; Exercise counseling; Class 1 obesity due to excess calories with serious comorbidity and body mass index (BMI) of 31.0 to 31.9 in adult; Primary osteoarthritis of both knees; Hypercholesterolemia Social History Tobacco Use Types Packs/Day Years [...] AM EDT documented as of this encounter Last Filed Vital Signs Vital Sign Reading [...] Mass Index 31.22 11/07/2024 10:02 AM EDT documented in this encounter Plan of Treatment Upcoming Encounters Date Type Department Care Team (Late st Contact Info) Description 12/25/2024 10:00 AM EDT Office Visit [facility] ADULT DENTAL 505 [place] [address] Godfrey Sher 02/08/2025 10:30 AM EDT Office Visit [facility] MED & PEDS 505 [place] [address] Steven Sher MD 505 [place] [address] Scheduled Orders Name Type Priority Associated Diagnoses Order Schedule POCT Glucose Point of Care Testing Routine Type 2 diabetes mellitus without complication, with long-term current use of insulin ([facility]) Ordered: 11/07/2024 POCT HGB A1C Point of Care Testing Routine Type 2 diabetes mellitus without complication, with long-term current use of insulin ([facility]) Ordered: 11/07/2024 Sed Rate by Modified [place] Lab Routine Left wrist pain Expected: 11/07/2024, Expires: 11/07/2025 C-reactive Protein Lab Routine Left wrist pain Expected: 11/07/2024 (Approximate), Expires: 11/07/2025 ALESSANDRA Screen,IFA, with Reflex to Titer and Pattern Lab Routine Left wrist pain Expected: 11/07/2024 (Approximate), Expires: 11/07/2025 Rheumatoid Factor Lab Routine Left wrist pain Expected: 11/07/2024, Expires: 11/07/2025 Cyclic Citrullinated Peptide (CCP) Antibody (IgG) Lab Routine Left wrist pain Expected: 11/07/2024 (Approximate), Expires: 11/07/2025 XR Wrist 3+ Views Left Imaging Routine Left wrist pain Expected: 11/07/2024, Expires: 11/07/2025 XR Wrist 3+ Views Right Imaging Routine Right wrist pain Expected: 11/07/2024, Expires: 11/07/2025 Lipid Panel, Standard Lab Routine Hypercholesterolemi a Expected: 11/07/2024 (Approximate), Expires: 11/07/2025 CBC auto differential Lab Routine Hypercholesterolemi a Expected: 11/07/2024 (Approximate), Expires: 11/07/2025 TSH W/Reflex to FT4 Lab Routine Hypercholesterolemi a Expected: 11/07/2024 (Approximate), Expires: 11/07/2025 Scheduled Referrals Name Type Priority Associated Diagnoses Orde r Schedule Referral to Behavioral Health Outpatient Referral Routine Depressive disorder Expected: 11/07/2024 (Approximate), Expires: 11/07/2025 Referral to Nutrition Therapy Outpatient Referral Routine Type 2 diabetes mellitus without complication, with long-term current use of insulin ([facility]) Class 1 obesity due to excess calories with serious comorbidity and body mass index (BMI) of 31.0 to 31.9 in adult Expected: 11/07/2024 (Approximate), Expires: 11/07/2025 documented as of this encounter Visit Diagnoses Diagnosis Depressive disorder- Primary Depressive disorder, not elsewhere classified Type 2 diabetes mellitus without complication, with long-term current use of insulin (CMS/HCC) Left wrist pain Pain in joint, forearm Right wrist pain Pain in joint, forearm Dietary counseling Dietary surveillance and counseling Exercise counseling Class 1 obesity due to excess calories with serious comorbidity and body mass index (BMI) of 31.0 to 31.9 in adult Primary osteoarthritis of both knees Hypercholesterolemia Pure hypercholesterolemia documented in this encounter Additional Health Concerns Assessment Noted Time PHQ-9 Depression Total Score: 025 11:41 AM EDT documented as of this encounter Care Teams Dimensional Engineer Relationship Specialty Start Date End Date Steven Sher MD [address] [place] [address] PCP - General Internal Medicine 07/06/18 documented as of this encounter
--- OUTSIDE RECORDS SUMMARY | 2024-11-07 12:37 | XMS_ITS | Encounter Summary ---
Author Organization [employer] Address [address] [place] [address] 7 [place] [address] Care Team Providers Care Hook And Eye Sewing Machine Operator Name Role Phone Steven Sher MD Primary Care Provider Reason for Referral * Consultation (Routine) - Authorized Specialty Diagnoses / Procedures Referred By Jayjay gibson Referred To Contact Podiatry Diagnoses Superficial white onychomycosis Steven Sher MD 505 [place] [address] Phone: tel: fax: Keon Rueda DPM [address] [place] [address] [place] [address] Phone: tel: fax: Referral ID Status Reason Start Date Expiration Date Visits Requested Visits Authorized [id number] Authorized Specialty Services Required 07/11/2024 07/11/2025 1 1 Encounter Details Date Type Department Care Team ([facility] Contact Info) Description 07/11/2024 Orders Only [facility] CHC MED & PEDS [address] [place] [address] Steven Sher MD [address] [place] [address] Superficial white onychomycosis (Primary Dx) Social History Tobacco Use Types [...] Description 12/25/2024 10:00 AM EDT Office Visit [facility] ADULT DENTAL 505 [place] [address] Godfrey Sher 02/08/2025 10:30 AM EDT Office Visit [facility] MED & PEDS [address] [place] [address] Steven Sher MD [address] [place] [address] Scheduled Referrals Name Type Priority Associated Diagnoses Orde r Schedule Referral to Podiatry Outpatient Referral Routine Superficial white onychomycosis Expected: 07/11/2024 (Approximate), Expires: 07/11/2025 documented as of this encounter Visit Diagnoses Diagnosis Superficial white onychomycosis- Primary documented in this encounter Additional Health Concerns Assessment Noted Time PHQ-9 Depression Total Score: 4 10/01/19 23 10:38 AM EDT documented as of this encounter Care Teams Hook And Eye Sewing Machine Operator Relationship Specialty Start Date End Date Steven Sher MD [address] [place] [address] PCP - General Internal Medicine 07/06/18 documented as of this encounter
--- OUTSIDE RECORDS SUMMARY | 2024-11-07 12:37 | XMS_ITS | Encounter Summary ---
Author Organization [employer] Address [address] [facility] 7t [place] [address] Care Team Providers Care Yardage Control Clerk Name Role Phone Steven Sher MD Primary Care Provider Reason for Visit * Reason Onset Date Comments Med Refill 08/16/2024 Encounter Details Date Type Department Care Team ([facility] Contact Info) Description 08/16/[address] [facility] CHC MED & PEDS [address] [place] [address] Steven Sher MD [address] [place] [address] Med Refill Social History Tobacco Use Types Packs/Day Years [...] encounter Miscellaneous Notes * Telephone Encounter - Megan Hopkins - 08/16/2024 12:31 PM EST TC from pt requesting medication refill. Medications needing refill : clotrimazole cream To be sent to: [id number] - [place], [place] - [address] [facility] [facility] Pt is requesting above medication but did not see on med list. Informs was last prescribed by pcp. documented in this encounter Plan of Treatment Upcoming Encounters Date Type Department Care Team (Late st Contact Info) Description 12/25/2024 10:00 AM EDT Office Visit [facility] ADULT DENTAL [address] [place] [address] Godfrey Sher 02/08/2025 10:30 AM EDT Office Visit [facility] MED & PEDS [address] [place] [address] Steven Sher MD [address] [place] [address] documented as of this encounter Visit Diagnoses Not on filedocumented in this encounter Additional Health Concerns Assessment Noted Time PHQ-9 Depression Total Score: 4 10/01/19 23 10:38 AM EDT documented as of this encounter Care Teams Yardage Control Clerk Relationship Specialty Start Date End Date Steven Sher MD [address] [place] [address] PCP - General Internal Medicine 07/06/18 documented as of this encounter
--- OUTSIDE RECORDS SUMMARY | 2024-11-07 12:37 | XMS_ITS | Encounter Summary ---
Author Organization [employer] Address [address] [place] [address] 7t [place] [address] Care Team Providers Care Liability Analyst Name Role Phone Steven Sher MD Primary Care Provider Reason for Visit * Reason Comments Med Refill Encounter Details Date Type Department Care Team ([facility] Contact Info) Description 12/07/2022 Refill [facility] MEDICINE [address] [place] [address] Steven Sher MD [address] [place], [place] [phone] Social History Tobacco Use Types Packs/Day Years Used Date Smoking Tobacco: Never Passive Smoke Exposure: Never Smokeless Tobacco: Never Alcohol Use Standard Drinks/Week Comments Never 0 (1 standard drink = 0.6 oz pur e alcohol) Depression Answer Date Recorded Patient Health Questionnaire-9 Score 4 09/30/2022 Depression Answer Date Recorded Patient Health Questionnaire-2 [...] Encounters Date Type Department Care Team (Late Contact Info) Description 12/25/2024 10:00 AM EDT Office Visit [facility] ADULT DENTAL [address] [place] [address] Godfrey Sher 02/08/2025 10:30 AM EDT Office Visit [facility] MED & PEDS [address] [place] [address] Steven Sher MD [address] [place] [address] documented as of this encounter Visit Diagnoses Not on filedocumented in this encounter Additional Health Concerns Assessment Noted Time PHQ-9 Depression Total Score: 4 10/01/19 23 10:38 AM EDT documented as of this encounter Care Teams Liability Analyst Relationship Specialty Start Date End Date Steven Sher MD [address] [place] [address] PCP - General Internal Medicine 07/06/18 documented as of this encounter
--- OUTSIDE RECORDS SUMMARY | 2024-11-07 12:37 | XMS_ITS | Encounter Summary ---
Author Organization [employer] Address [address] 7[address] [place] [address] Care Team Providers Care Signal Operator Linguist Name Role Phone Steven Sher MD Primary Care Provider Reason for Visit * Reason Onset Date Comments PA approval for crown 07/11/2024 Encounter Details Date Type Department Care Team ([facility] Contact Info) Description 07/11/2024 Telephone [facility] ADULT DENTAL [address] [place] [address] Hamilton Germain, DMD [address] [place], [place] [phone] PA approval for crown Social History Tobacco Use Types Packs/Day Years [...] encounter Miscellaneous Notes * Telephone Encounter - Zamzam Armas - 07/11/2024 9:48 AM EST PA approved for crown scanned in on 07/03. Patient active requested for the crown and would like hood scheduled. Currently no appts available for Dr. Germain. Please reach out to patient for scheduling DR documented in this encounter Plan of Treatment Upcoming Encounters Date Type Department Care Team (Late st Contact Info) Description 12/25/2024 10:00 AM EDT Office Visit [facility] ADULT DENTAL [address] [place] [address] Godfrey Sher 02/08/2025 10:30 AM EDT Office Visit [facility] MED & PEDS [address] [place] [address] Steven Sher MD [address] [place] [address] documented as of this encounter Visit Diagnoses Not on filedocumented in this encounter Additional Health Concerns Assessment Noted Time PHQ-9 Depression Total Score: 4 10/01/19 23 10:38 AM EDT documented as of this encounter Care Teams Signal Operator Linguist Relationship Specialty Start Date End Date Steven Sher MD [address] [place] [address] PCP - General Internal Medicine 07/06/18 documented as of this encounter
--- OUTSIDE RECORDS SUMMARY | 2024-11-07 12:37 | XMS_ITS | Encounter Summary ---
Author Organization [employer] Address [address] [facility] 7t [place] [address] Care Team Providers Care Lan Administrator Name Role Phone Steven Sher MD Primary Care Provider Reason for Visit * Reason Comments Med Refill Encounter Details Date Type Department Care Team ([facility] st Contact Info) Description 09/06/2024 Refill [facility] CH[facility] MED & PEDS [address] [facility] [place] [address] Steven Sher MD [address] [place] [address] Type 2 diabetes mellitus with diabetic neuropathy, with long-term current use of insulin ([facility]) Social History Tobacco Use Types Packs/Day Years [...] 10:00 AM EDT Office Visit [facility] ADULT DENTAL [address] [place] [address] Godfrey Sher 02/08/2025 10:30 AM EDT Office Visit [facility] MED & PEDS [address] [place] [address] Steven Sher MD [address] [place] [address] documented as of this encounter Visit Diagnoses Diagnosis Type 2 diabetes mellitus with diabetic neuropathy, with long-term current use of insulin ([facility]) documented in this encounter Additional Health Concerns Assessment Noted Time PHQ-9 Depression Total Score: 4 10/01/19 23 10:38 AM EDT documented as of this encounter Care Teams Lan Administrator Relationship Specialty Start Date End Date Steven Sher MD [address] [place] [address] PCP - General Internal Medicine 07/06/18 documented as of this encounter
--- OUTSIDE RECORDS SUMMARY | 2024-11-07 12:37 | XMS_ITS | Encounter Summary ---
Author Organization [employer] Address [address] [facility] 7t [place] [address] Care Team Providers Care Director Of Recruitment And Admissions Name Role Phone Steven Sher MD Primary Care Provider Reason for Visit * Reason Comments Med Refill Encounter Details Date Type Department Care Team ([facility] st Contact Info) Description 08/12/2023 Refill [facility] CHC MED & PEDS [address] [place] [address] Steven Sher MD [address] [place], [place] [phone] Social History Tobacco Use Types Packs/Day Years [...] 12/25/2024 10:00 AM EDT Office Visit [facility] ADULT D[facility]AL [address] [place] [address] Godfrey Sher 02/08/2025 10:30 AM EDT Office Visit [facility] MED & PEDS [address] [place] [address] Steven Sher MD [address] [place] [address] documented as of this encounter Visit Diagnoses Not on filedocumented in this encounter Additional Health Concerns Assessment Noted Time PHQ-9 Depression Total Score: 4 10/01/19 23 10:38 AM EDT documented as of this encounter Care Teams Director Of Recruitment And Admissions Relationship Specialty Start Date End Date Steven Sher MD [address] [place] [address] PCP - General Internal Medicine 07/06/18 documented as of this encounter
--- OUTSIDE RECORDS SUMMARY | 2024-11-07 12:37 | XMS_ITS | Encounter Summary ---
Author Organization [employer] Address [address] [place] [address] 7 [place] [address] Care Team Providers Care Major Gifts Officer Name Role Phone Steven Sher MD Primary Care Provider Encounter Details Date Type Department Care Team (Latest Contact Info) Description 02/03/2021 Abstract [facility] CONVERSIONS Dental, Provider, DDS Social History Tobacco Use Types Packs/Day Years Used Date Smoking Tobacco: Never Assessed Comments Unknown Sex and Gender Information Value [...] Office Visit [facility] ADULT DENTAL [address] [place] [address] Godfrey Sher 02/08/2025 10:30 AM EDT Office Visit [facility] MED & PEDS [address] [place] [address] Steven Sher MD [address] [place] [address] documented as of this encounter Visit Diagnoses Not on filedocumented in this encounter Care Teams Major Gifts Officer Relationship Specialty Start Date End Date Steven Sher MD [address] [place] [address] PCP - General Internal Medicine 07/06/18 documented as of this encounter
--- OUTSIDE RECORDS SUMMARY | 2024-11-07 12:37 | XMS_ITS | Encounter Summary ---
Author Organization [employer] Address [address] [facility] 7t [place] [address] Care Team Providers Care Community Artist Name Role Phone Steven Sher MD Primary Care Provider Reason for Visit * Reason Comments Med Refill Encounter Details Date Type Department Care Team ([facility] st Contact Info) Description 06/24/2023 Refill [facility] CHC MED & PEDS [address] [facility] [place] [address] Steven Sher MD 505 [place] [address] Type 2 diabetes mellitus with diabetic neuropathy, with long-term current use of insulin ([facility]) Social History Tobacco Use Types Packs/Day Years [...] Description 12/25/2024 10:00 AM EDT Office Visit [facility] ADULT DENTAL [address] [place] [address] Godfrey Sher 02/08/2025 10:30 AM EDT Office Visit [facility] MED & PEDS [address] [place] [address] Steven Sher MD [address] [place] [address] documented as of this encounter Visit Diagnoses Diagnosis Type 2 diabetes mellitus with diabetic neuropathy, with long-term current use of insulin ([facility]) documented in this encounter Additional Health Concerns Assessment Noted Time PHQ-9 Depression Total Score: 4 10/01/19 23 10:38 AM EDT documented as of this encounter Care Teams Community Artist Relationship Specialty Start Date End Date Steven Sher MD [address] [place] [address] PCP - General Internal Medicine 07/06/18 documented as of this encounter
--- OUTSIDE RECORDS SUMMARY | 2024-11-07 12:37 | XMS_ITS | Encounter Summary ---
Author Organization [employer] Address [address] 7t [place] [address] Care Team Providers Care Risk Control Officer Name Role Phone Steven Sher MD Primary Care Provider Encounter Details Date Type Department Care Team ([facility] st Contact Info) Description 08/17/2024 Orders Only [facility] CHC MED & PEDS [address] [place] [address] Steven Sher MD [address] [place] [address] Tinea pedis of both feet Social History Tobacco Use Types Packs/Day Years [...] 12/25/2024 10:00 AM EDT Office Visit [facility] ADULT DENTAL [address] [place] [address] Godfrey Sher 02/08/2025 10:30 AM EDT Office Visit [facility] MED & PEDS [address] [place] [address] Steven Sher MD [address] [place] [address] documented as of this encounter Visit Diagnoses Diagnosis Tinea pedis of both feet documented in this encounter Additional Health Concerns Assessment Noted Time PHQ-9 Depression Total Score: 4 10/01/19 23 10:38 AM EDT documented as of this encounter Care Teams Risk Control Officer Relationship Specialty Start Date End Date Steven Sher MD [address] [place] [address] PCP - General Internal Medicine 07/06/18 documented as of this encounter
--- OUTSIDE RECORDS SUMMARY | 2024-11-07 12:37 | XMS_ITS | Encounter Summary ---
Author Organization [employer] Address [address] 7t [place] [address] Care Team Providers Care Director Web Name Role Phone Steven Sher MD Primary Care Provider [phone] Reason for Visit * Reason Onset Date Comments New Med Request 02/16/2024 Encounter Details Date Type Department Care Team ([facility] Contact Info) Description 02/16/2024 Telephone [facility] MEDICINE [address] [place] [address] Steven Sher MD [address] [place], [place] [phone] New Med Request Social History Tobacco Use [...] t he electric, gas, oil or water [employer] threatened to shut off services in your [...] encounter Miscellaneous Notes * Telephone Encounter - Dwight Sher - 02/16/2024 12:34 PM EDT Tc from patient requesting a call back states was suppose to be on a medication for diabetes and has not received anything documented in this encounter Plan of Treatment Upcoming Encounters Date Type Department Care Team (Late st Contact Info) Description 12/25/2024 10:00 AM EDT Office Visit [facility] ADULT DENTAL [address] [place] [address] Godfrey Sher 02/08/2025 10:30 AM EDT Office Visit [facility] MED & PEDS [address] [place] [address] Steven Sher MD [address] [place] [address] documented as of this encounter Visit Diagnoses Not on filedocumented in this encounter Additional Health Concerns Assessment Noted Time PHQ-9 Depression Total Score: 4 10/01/19 23 10:38 AM EDT documented as of this encounter Care Teams Director Web Relationship Specialty Start Date End Date Steven Sher MD [address] [place] [address] PCP - General Internal Medicine 07/06/18 documented as of this encounter
--- OUTSIDE RECORDS SUMMARY | 2024-11-07 12:37 | XMS_ITS | Encounter Summary ---
Author Organization [employer] Address [address] [facility] 7t [place] [address] Care Team Providers Care Cluster Bore Operator Name Role Phone Steven Sher MD Primary Care Provider Reason for Referral * Imaging (Routine) - Closed Specialty Diagnoses / Procedures Referred By Jayjay gibson Referred To Contact Radiology Diagnoses Transaminitis Procedures US Abdomen Complete Steven Sher MD [address] [place] [address] Phone: tel: fax: [address] Phone: tel: fax: Referral ID Status Reason Start Date Expiration Date Visits Re quested Visits Authorized [id number] Closed 01/24/2024 01/23/2025 1 1 Encounter Details Date Type Department Care Team ([facility] st Contact Info) Description 01/24/2024 Orders Only [facility] CHC MED & PEDS [address] [place], [place] [phone] Steven Sher MD [address] [place], [place] [phone] Transaminitis (Primary Dx); Hypercholesterolemia Social History Tobacco Use Types Packs/Day Years Used Date Smoking Tobacco: Never Passive Smoke Exposure: Never Smokeless Tobacco: Never Alcohol Use Standard Drinks/Week Comments Never 0 (1 standard drink = 0.6 oz pur e alcohol) Depression Answer Date Recorded Patient Health Questionnaire-9 Score 4 09/30/2022 Housing Stability Answer Date Recorded What is your housing situation today? I have alejandra sing 04/19/[address] you li [...] Description 12/25/2024 10:00 AM EDT Office Visit [facility] ADULT DENTAL [address] [place] [address] Godfrey Sher 02/08/2025 10:30 AM EDT Office Visit [facility] MED & PEDS [address] [place] [address] Steven Sher MD [address] [place] [address] documented as of this encounter Procedures Procedure Name Priority Date/Time Associated Diagnosis Comments US ABDOMEN COMPLETE Routine 02/08/2024 Transaminitis HEPATITIS C AB W/REFL TO HCV RNA, QN, PCR Routine 01/26/2024 9:28 AM EDT Transaminitis HEPATITIS B SURFACE ANTIBODY, QUALITATIVE Routine 01/26/2024 9:28 AM EDT Transaminitis documented in this encounter Results * US Abdomen Complete (02/08/2024) Anatomical Region Laterality Modality Abdomen Ultrasound Steven Sher MD IMG US PROCEDURES Final Res ult * Hepatitis C Antibody with Reflex to HCV, RNA, Quantitative, Real-Time PCR (01/26/2024 9:28 AM EDT) Hepatitis C Antibody Nonreactive Nonreactive [facility] Comment:Antibodies to HCV no t detected; does not exclude early acuteHCV infection. Blood Venous blood specimen / Unknown 01/26/2024 9:28 AM EDT 01/26/2024 2:24 PM EDT us Steven Sher MD LAB BLOOD ORDERABLES Final Result Performing Organization Address [facility] Co de Phone Number [facility] [address] [place] [phone] * Hepatitis B Surface Antibody, Qualitative (01/26/2024 9:28 AM EDT) ~Hepatitis B Surface Antibody NONREACTIVE Nonreactive [facility] Comment:Nonreactive: < 8.00 mIU/mL Blood Venous blood specimen / Unknown 01/26/2024 9:28 AM EDT 01/26/2024 2:24 PM EDT Steven Sher MD LAB BLOOD ORDERABLES Final Result Performing Organization Address [facility] Co de Phone Number [facility] [address] [place] [phone] documented in this encounter Visit Diagnoses Diagnosis Transaminitis- Primary Nonspecific elevation of levels of transaminase or lactic acid dehydrogenase (LDH) Hypercholesterolemia Pure hypercholesterolemia documented in this encounter Additional Health Concerns Assessment Noted Time PHQ-9 Depression Total Score: 4 10/01/19 23 10:38 AM EDT documented as of this encounter Care Teams Cluster Bore Operator Relationship Specialty Start Date End Date Steven Sher MD [address] [place] [phone] PCP - General Internal Medicine 07/06/18 documented as of this encounter
[2024-11-07 14:14] LABS: MANUAL DIFF FLAG NO
[2024-11-07 14:20] LABS: Basophils Percent Auto 0.3 % (0-2); Eosinophils Percent Auto 0.5 % (0-4); Hematocrit 38.8 % (37.0-47.0); Hemoglobin 13.2 g/dl (12.0-16.0); Imm Gran Abs Auto 0.04 X10*3/uL (0.00-0.03); Imm Gran Pct Auto 0.5 % (0.0-0.4); Lymphocytes Percent Auto 26.8 % (20-40); Mean Corpuscular Hemoglobin 31.7 pg (27.0-33.0); Monocytes Absolute Auto 0.7 X10*3/uL (0.1-1.2); Monocytes Percent Auto 8.8 % (2-11); Neutrophils Absolute Auto 4.7 x10*3/uL (2.0-8.3); Neutrophils Percent Auto 63.1 % (45-73); Platelet Count 246 X10*3/uL (160-400); Red Blood Count 4.17 X10*6/uL (4.20-5.50); Red Cell Distribution Width 12.9 % (11.0-16.0); White Blood Count 7.5 X10*3/uL (4.8-10.8)
[2024-11-07 14:53] LABS: Cholesterol 233 mg/dL (<200); HDL Cholesterol 48 mg/dL (>40); LDL Cholesterol Calculated 129 mg/dL (<100); Triglycerides 282 mg/dL (<150)
[2024-11-07 15:00] LABS: TSH reflex Free T4 1.37 uIU/mL (0.32-4.0)
[2024-11-07 15:03] LABS: Erythrocyte Sedimentation Rate 12 MM/HR (0-20)
[2024-11-07 16:11] LABS: Rheumatoid Factor < 13.0 IU/mL (<15.0)
[2024-11-08 12:03] LABS: Anti Nuclear Antibody Screen NEGATIVE (NEGATIVE)
[2024-11-09 13:28] LABS: Cyclic Citrullinated Peptide 21 UNITS
== END 2024-11-07 11:09 | disposition home or self-care (01) ==
LOC: HO.CHCLDS 11:08
PROVIDERS: Visit Provider Internal Medicine
DX: M25.532 Pain in left wrist (principal); E78.00 Pure hypercholesterolemia, unspecified
CPT/HCPCS: 36415; 80061; 84443; 85025; 85652; 86038; 86140; 86200; 86431

== ENCOUNTER 2025-02-08 11:15 | Outpatient (REF) | payer OTHER, SELFPAY ==
--- OUTSIDE RECORDS SUMMARY | 2025-02-08 12:22 | XMS_ITS | Clinical Summary ---
Author Organization [facility] Address [address] [place] [address] Phone Care Team Providers Care Greek Professor Name Role Phone Steven Sher MD Primary Care Provider [phone] Encounters Date Type Department Care Team Description 12/11/2024 9:45 AM EDT - 12/11/2024 11:59 PM EDT Hospital [facility] [address] [phone] Encounter for screening mammogram for breast cancer Discharge Disposition: Home or Self Care from Last 3 Months Surgical History Surgery [...] mellitus), t ype 2 with renal complications ([facility]) Allergic rhinitis 04/23/2017 DX:Allergic rh initis Migraines [...] = 0.6 oz pur e alcohol) Comments No Sex and Gender Information Value Date Recorded Sex Assigned at Female 04/29/2024 12:30 PM EDT Legal Sex Female 5:44 AM EST Gender Identity Female 04/29/2024 12:30 PM EDT Sexual Orientation Straight 04/29/2024 12 :30 PM EDT Obstetrics History Para Term AB IAB SAB Ectopic Multiple Livin g Live Births 3 Last Filed Vital Signs Vital Sign Reading Time Taken Comments Blood Pressure - - Pulse - - Temperature - - Respiratory Rate - - Oxygen Saturation - - Inhaled Oxygen Concentration - - Weight 78 kg (172 lb) 12/11/2024 10:30 AM EDT Height 160 cm (5' 3 ) 12/11/2024 10:30 AM EDT Body Mass Index 30.47 12/11/2024 10:30 AM EDT Plan of Treatment Health Maintenance Due Date Last Done Comments [...] Diabetes: Annual Urine Albumin-Creatinine Ratio (uACR) 06/12/2022 COVID-19 Vaccine ( season) 2024 06/05/2022, 06/04/2021, 11/28/2020, Additional history exists Depression Screening 06/28/2024 Influenza Vaccine (#1) 2025 05/23/2018, 2017 Diabetes: Annual GFR (Glomerular Filtration Rate) 04/27/2025 04/27/2024 Hypertension/CHF/CAD Annual BMP Blood Test 04/27/2025 04/27/2024 Diabetes: Blood Sugar Control Test (HGBA1C) 05/10/2025 11/07/2024, 08/10/2024, 04/27/2024, Additional history exists Breast Cancer Screening 12/11/2026 12/12/19 25, 09/27/2023, 09/21/2022, Additional history exists Colorectal Cancer Screening: FIT-DNA (Cologuard) 05/03/2027 05/03/2024 DTaP,Tdap,and Td Vaccines (2 - Td or Tdap) 01/18/2028 01/17/2018 Cholesterol Screening (Lipid Panel) 11/07/2029 11/07/2024, 01/24/2024 Zoster Vaccines Completed 08/24/2019, 06/05/2019 Pneumococcal [...] Procedure Name Priority Date/Time Associated Diagnosis Comments MG MAMMO DIGITAL SCREENING W ROMÁN BILAT Routine 12/11/2024 10:42 AM EDT Encounter for screening mammogram for breast cancer PAP SMEAR Routine 01/24/2018 from Last 3 Months or Most Recently Relevant to Health Maintenance Results * MG Mammo Digital Screening w Román bilat (12/11/2024 10:42 AM EDT) Anatomical Region Laterality Modality Breast Bilateral Mammography 12/11/2024 6:22 PM EDT Impressions 12/11/2024 6:27 PM EDT No mammographic evidence of malignancy. No suspicious interval change. A negative mammogram in the presence of a clinically suspicious palpable abnormality does not preclude the possibility of malignancy or alter the indications for biopsy. ASSESSMENT: BI-RADS 2: BENIGN RECOMMENDATION(S): 1: Routine screening mammogram BILATERAL in 1 year. [facility] location[facility] at [address], [address] -------- FINAL REPORT -------- Dictated By: Christiano Cote Dictated Date: 12/11/2024 18:22 ET Assigned Physician: Christiano Cote Reviewed and Electronically Signed By: Christiano Cote Signed Date: 12/11/2024 18:27 ET Workstation ID: [id number] Transcribed By: Self Edit Transcribed Date: 12/11/2024 18:22 ET Narrative 12/11/2024 6:27 PM EDT EXAM: SCREENING MAMMOGRAPHY, BILATERAL HISTORY: SCREENING. No additional history. COMPARISON: 09/27/23, 09/21/22, 09/17/21, 08/26/20 TECHNIQUE: Synthesized CC and MLO projections of each breast. Tomosynthesis of each breast in the CC and MLO projections. ADDITIONAL IMAGING: None Computer-aided detection was employed with the Zin[employer] AI 3-D. TISSUE DENSITY: There are scattered areas of fibroglandular density. (BI-RADS category B) FINDINGS: RIGHT BREAST: No suspicious mass. No suspicious calcification. No distortion. No suspicious change in focal asymmetry in the 9 o'clock region 7 cm from the nipple. LEFT BREAST: No suspicious mass. No suspicious calcification. No distortion. No additional suspicious left breast findings Procedure Note Christiano Cote MD - 12/11/2024 EXAM: SCREENING MAMMOGRAPHY, BILATERAL HISTORY: SCREENING. No additional history. COMPARISON: 09/27/23, 09/21/22, 09/17/21, 08/26/20 TECHNIQUE: Synthesized CC and MLO projections of each breast.Tomosynthesis of each breast in the CC and MLO projections. ADDITIONAL IMAGING: None Computer-aided detection was employed with the [employer] AI 3-D. TISSUE DENSITY: There are scattered areas of fibroglandular density.(BI-RADS category B) FINDINGS: RIGHT BREAST: No suspicious mass. No suspicious calcification. No distortion. Nosuspicious change in focal asymmetry in the 9 o'clock region 7 cm from thenipple. LEFT BREAST: No suspicious mass. No suspicious calcification. No distortion. Noadditional suspicious left breast findings IMPRESSION: No mammographic evidence of malignancy. No suspicious interval change. A negative mammogram in the presence of a clinically suspicious palpableabnormality does not preclude the possibility of malignancy or alter theindications for biopsy. ASSESSMENT: BI-RADS 2: BENIGN RECOMMENDATION(S): 1: Routine screening mammogram BILATERAL in 1 year. [facility] location[facility] at [address], [address] -------- FINAL REPORT -------- Dictated By: Christiano Cote Dictated Date: 12/11/2024 18:22 ET Assigned Physician: Christiano Cote Reviewed and Electronically Signed By: Christiano Cote Signed Date: 12/11/2024 18:27 ET Workstation ID: [id number] Transcribed By: Self Edit Transcribed Date: 12/11/2024 18:22 ET us Self Referral Sppl IMG BI PROCEDURES Final Resul t * Pap smear (01/24/2018) 01/24/2018 Narrative HISTORICAL TESTING LAB RESULTING AGENCY - 01/26/2018 5:07 PM EDT [id number] THINPREP PAP, IMAGED: NEGATIVE FOR SQUAMOUS INTRAEPITHELIAL LESION AND MALIGNANCY . RESULT OF APTIMA HIGH RISK HPV ASSAY: NEGATIVE (SEROTYPES 16,18,31,33,35,39,45,51,52,56,58,59,66,68) MICKI NELSON(ASCP) (CASE ELECTRONICALLY SIGNED 01 26 2018) ADEQUACY: SATISFACTORY. ENDOCERVICAL/TRANSFORMATION ZONE COMPONENT PRESENT. SOURCE: THINPREP PAP HPV ANY DX: REFLEX 16 AND 18, CERVICAL, IMAGED: CLINICAL INFORMATION: HPV ANY DIAGNOSIS. Z12.4, Z01.419 us Sandrita Gilbert MD LAB CYTOLOGY ORDERABLES Final Result HISTORICAL TESTING LAB RESULTING AGENCY from Last 3 Months or Most Recently Relevant to Health Maintenance Insurance [place] ANDREW [id number] [employer] MEDICARE Member Subscriber Plan / Payer (Ef fective 2018-Present) Name:DAVIS AVELAR Relation to Subscriber:Self Name:Davis Avelar Payer ID:[id number] Group ID:[id number] Type:Not on file Address: [place] [address] [place] [place] [id number] Care Teams Greek Professor Relationship Specialty Start Date End Date Steven Sher MD [address] [place] [address] [place] [address] PCP - General Internal Medicine 04/29/24
--- OUTSIDE RECORDS SUMMARY | 2025-02-08 12:22 | XMS_ITS | Clinical Summary ---
Author Organization [facility] Address [address] [place] [phone] Phone Care Team Providers Care Polymerization Helper Name Role Phone Steven Sher MD Primary Care Pr ovider Allergies Active Allergy Reactions Criticality Noted Date Comments Vitamin E Hives 07/19/2018 Medications clonazePAM (KLONOPIN) 1 MG tabletIndicatio ns:Anxiety TAKE 1 TABLET BY MOUTH TWICE DAILY 56 tablet 8 Active Additional Information Patient not taking.Reported on 07/19/2018 FLUoxetine (PROZAC) 40 MG capsule Take 1 capsule by mouth every morning. Active pravastatin (PRAVACHOL) 10 MG tablet Take 1 tablet by mouth daily. Active fenofibrate (LOFIBRA) 160 MG tablet Take 1 tablet by mouth daily. Active ciprofloxacin HCl (CIPRO) 250 MG tablet Take 1 tablet by mouth every 12 (twelve) hours. 6 Active ezetimibe (ZETIA) 10 mg tablet Take 1 tablet by mouth daily. 7 Active metroNIDAZOLE (METROCREAM) 0.75 % cream 1 application to affected area Externally Twice a day 7 Active nystatin (NYSTOP) powder 1 to affected area Externally Twice a day 7 Active Medication-Free Text Fexofenadine HCl 60 MG Capsule, Sig: as directed Orally Once a day Active zolpidem (AMBIEN) 10 mg tablet Take 1 tablet by mouth nightly. 1 Active omeprazole (PRILOSEC) 20 MG capsule Take 1 capsule by mouth daily. Active Medication-Free Text Doxycycline Hyclate 75 MG Capsule Delayed Release Particles, Sig: as directed Orally Twice a day Active insulin glargine (LANTUS) 100 unit/mL injection vial Inject under the skin nightly. Active rosuvastatin (CRESTOR) 40 MG tablet Take 40 mg by mouth daily. Active lisinopril (PRINIVIL,ZESTR IL) 5 MG tablet Take 5 mg by mouth daily. Active cefpodoxime (VANTIN) 200 MG tablet Take 1 tablet (200 mg total) by mouth 2 (two) times a day. 20 tablet 9 Active Social History Tobacco Use Types Packs/Day Years Used Date Smoking Tobacco: Never Smokeless Tobacco: Never Alcohol Use Standard Drinks/Week Comments No 0 (1 standard drink = 0.6 oz pur e alcohol) Education Answer Date Recorded Are you interested in more education? Not on kirti e 10/23/2022 Are you concerned about learning? Not on file 10/23/2022 No 10/23/2022 No 10/23/2022 Digital Access Answer Date Recorded No 11/21/2022 No 11/21/2022 Reliable internet access at home? Not on file 11/21/2022 Device with a working camera? Not on file Comments No Sex and Gender Information Value Date Recorded Sex Assigned at Female 07/19/2018 9:45 AM EST Legal Sex Female 9:47 PM EDT Gender Identity Female 07/19/2018 9:45 AM EST Sexual Orientation Straight 07/19/2018 9: 45 AM EST Last Filed Vital Signs Vital Sign Reading Time Taken Comments Blood Pressure 119/72 07/19/2018 11:48 AM EST Pulse 58 07/19/2018 11:48 AM EST Temperature 37 C (98.6 F) 07/19/2018 11:48 AM EST Respiratory Rate 16 07/19/2018 9:37 AM EST Oxygen Saturation 100% 07/19/2018 11:48 AM EST Inhaled Oxygen Concentration - - Weight 81.6 kg (180 lb) 07/19/2018 9:37 AM EST Height 157.5 cm (5' 2 ) 07/19/2018 9:37 AM EST Body Mass Index 32.92 07/19/2018 9:37 AM EST Plan of Treatment Health Maintenance Due Date Last Done Comments DEPRESSION SCREENING 1972 HEPATITIS C SCREENING 1978 HIV ONE-TIME SCREENING (18-6 5 YEARS) 1978 PAP SMEAR 1981 COLOGUARD 2005 COLONOSCOPY 2005 COLORECTAL CANCER SCREENING 2005 FIT TEST 2005 FOBT 2005 SIGMOIDOSCOPY 2005 VIRTUAL COLONOSCOPY 2005 PNEUMOCOCCAL VACCINES (50+ years) (2 of 2 - PCV) 01/17/2019 01/17/2018 CREATININE LEVEL 07/19/2019 07/19/2018 POTASSIUM LEVEL 07/19/2019 07/19/2018 MAMMOGRAM 05/30/2020 05/30/2018, 05/17/2017 LIPID PANEL 02/07/2023 02/07/2018 COVID-19 VACCINE (2 - 2023-2 5 season) 2024 10/30/2020 Adult Td,Tdap Booster 01/18/2028 01/17/2018 RSV VACCINE (1 - 1-dose 75+ series) 10/28/2035 SMOKING STATUS SCREENING (On ce After 26 Yrs) Completed 07/19/2018 ZOSTER VACCINES Completed 08/24/2019, 06/05/2019 HEPATITIS A VACCINES Aged Out No long er eligible based on patient's age to complete this topic HIB VACCINES Aged Out No longer eligi ble based on patient's age to complete this topic MENINGOCOCCAL VACCINES (ACWY) Aged Out No longer eligible based on patient's age to complete this topic MENINGOCOCCAL VACCINES (B) Aged Out N o longer eligible based on patient's age to complete this topic Medical Devices Not on file Procedures Procedure Name Priority Date/Time Associated Diagnosis Comments BASIC METABOLIC PANEL STAT 07/19/2018 10:12 AM EST BI MAMMOGRAM SCREENING WITH TOMOSYNTHESIS WITH CAD (BILATERAL) Routine 05/30/2018 9:47 AM EST Breast screening from Last 3 Months or Most Recently Relevant to Health Maintenance Results * (ABNORMAL) Basic metabolic panel (07/19/2018 10:12 AM EST) SODIUM 140 133 - 146 mmol/L [facility] CHLORIDE 102 96 - 108 mmol/L [facility] POTASSIUM 3.9 3.3 - 5.1 mmol/L [facility] CO2 28 21 - 35 mmol/L [facility] BUN 20(H) 6 - 19 mg/dL [facility] CREATININE 1.00 0.5 - 1.5 mg/dL [facility] GLUCOSE 164(H) 70 - 99 mg/dL [facility] CALCIUM 10.0 8.4 - 10.3 mg/dL [facility] EGFR 62 >59 mL/min/1.7 3m2 [facility] Comment:If patient is black, multiply result by 1.159. Estimated glomerular filtration rate calculated using the CKD-EPI equation. ANION GAP 14 10 - 20 mmol/L [facility] Blood 07/19/2018 10:1 2 AM EST 07/19/2018 10:28 AM EST us [facility] LAB BLOOD ORDERABLES Final Resul t [facility] [address] [place] [address] * BI MAMMOGRAM SCREENING WITH TOMOSYNTHESIS WITH CAD (BILATERAL) (05/30/2018 9:47 AM EST) Anatomical Region Laterality Modality Breast Left, Breast Right, Breast Bilateral Bila teral Mammography 05/30/2018 1:56 PM EST Impressions 05/30/2018 2:01 PM EST No mammographic signs of malignancy. Annual screening is recommended. BI-RADS CATEGORY: 2 - Benign finding. DENSITY: There are scattered fibroglandular densities. POS - CDHMAMA Narrative 05/30/2018 2:01 PM EST Bilateral mammography is performed in conjunction with computed aided detection. 3-D tomography along with 2-D C view imaging was also performed. Comparison made to previous dated as far back as 02/05/2012 and as recent as 05/17/2017. No suspicious masses, areas of architectural distortion or suspicious microcalcifications. Stable intramammary lymph node in the posterior upper outer left breast. Procedure Note Ray Garcia MD - 05/30/2018 Bilateral mammography is performed in conjunction with computed aideddetection. 3-D tomography along with 2-D C view imaging was alsoperformed. Comparison made to previous dated as far back as 02/05/2012 andas recent as 05/17/2017. No suspicious masses, areas of architectural distortion or suspiciousmicrocalcifications. Stable intramammary lymph node in the posteriorupper outer left breast. IMPRESSION: No mammographic signs of malignancy. Annual screening is recommended. BI-RADS CATEGORY: 2 - Benign finding. DENSITY: There are scattered fibroglandular densities. POS - CDHMAMA Linda Jovel MD IMG MG EXAMS Final Result from Last 3 Months or Most Recently Relevant to Health Maintenance Insurance MEDICARE REPLACEMENT [employer] [place] [id number] [facility] MEDICARE REPLACEMENT [place] [place] [id number] [place] [address] MEDICARE REPLACEMENT MEDICARE REPLACEMENT [facility] MEDICARE REPLACEMENT [facility] MEDICARE REPLACEMENT [facility] MEDICARE REPLACEMENT [facility] MEDICARE REPLACEMENT [facility] MEDICARE REPLACEMENT [place] [id number] Care Teams Polymerization Helper Relationship Specialty Start Date End Date Steven Sher MD [address] [place] [id number] PCP - General Internal Medicine 07/19/18 Additional Source Comments The information contained in this document represents components of the legal health record. It is not the complete legal health record.[facility]
--- OUTSIDE RECORDS SUMMARY | 2025-02-08 12:22 | XMS_ITS | Encounter Summary ---
Author Organization [employer] Address [address] [facility] [address] [place] [address] Care Team Providers Care Piano Tuner Name Role Phone Steven Sher MD Primary Care Provider Reason for Visit * Reason Comments Med Refill Encounter Details Date Type Department Care Team (Late st Contact Info) Description 12/07/2022 Refill [facility] [address] [place], [place] [phone] Steven Sher MD [address] [place], [place] [phone] Social History Tobacco Use Types Packs/Day Years [...] Care Team (Late st Contact Info) Description 02/13/2025 9:40 AM EDT Office Visit [facility] [address] [place], [place] [phone] Jeaneth Barillas MD [address] [place], [place] [phone] 07/03/2025 10:00 AM EST Office Visit [facility] [address] [place] [address] Godfrey Sher documented as of this encounter Visit Diagnoses Not on filedocumented in this encounter Additional Health Concerns Assessment Noted Time PHQ-9 Depression Total Score: 4 10/01/19 23 10:38 AM EDT documented as of this encounter Care Teams Piano Tuner Relationship Specialty Start Date End Date Steven Sher MD [address] [place] [address] PCP - General Internal Medicine 07/06/18 documented as of this encounter
[2025-02-08 14:50] LABS: Microalbum/Creatinine Ratio Ur 15.1 ug/mg cr (<30)
== END 2025-02-08 11:16 | disposition home or self-care (01) ==
LOC: HO.CHCLDS 11:15
PROVIDERS: Visit Provider Internal Medicine
DX: E11.9 Type 2 diabetes mellitus without complications (principal); Z79.4 Long term (current) use of insulin
CPT/HCPCS: 82043; 82570

== ENCOUNTER 2025-05-16 10:08 | Outpatient (REF) | payer OTHER, SELFPAY ==
--- OUTSIDE RECORDS SUMMARY | 2025-05-16 09:00 | XMS_ITS | Encounter Summary ---
Author Organization [employer] Address [address] [place] [address] 7 [place] [address] Care Team Providers Care Roll Coverer Name Role Phone Steven Sher MD Primary Care Provider [phone]- [phone] Reason for Referral * Consultation (Routine) - Pending Review Specialty Diagnoses / Procedures Referred By Jayjay t Referred To Contact Endocrinology Diagnoses Hypercholesterolemia Steven Sher MD [address] [place] [address] Phone: tel: fax: Referral ID Status Reason Start Date Expiration Date Visits Requested Visits Authorized [id number] Pending Review Specialty Services Required 05/16/2026 1 1 Reason for Visit * Reason Comments Follow-up Encounter Details Date Type Department Care Team ([facility] Contact Info) Description 05/16/2025 9:00 AM EST Office Visit [facility] [address] [place] [address] Steven Sher MD [address] [place] [address] Type 2 diabetes mellitus with diabetic polyneuropathy, without long-term current use of insulin (HCC) (Primary Dx); JASON (generalized anxiety disorder); Hypercholesterolemia; Primary hypertension Social History Tobacco Use Types Packs/Day Years Used Date Smoking Tobacco: Never Passive Smoke Exposure: Never Smokeless Tobacco: Never Alcohol Use Standard Drinks/Week Comments Never 0 (1 standard drink = 0.6 oz pur e alcohol) Depression Answer Date Recorded Patient Health Questionnaire-9 Score 16 02/22/2025 Patient Health Questionnaire-9 Score 16 02/22/2025 Last PHQ-9: Questionnaire Data Not on file 0 02/22/2025 Housing Stability Answer Date Recorded What is [...] Answer Date Recorded Patient Health Questionnaire-2 Score 5 02/22/2025 Internet Access Answer Date Recorded Internet Access [...] Sign Reading Time Taken Comments Blood Pressure 103/54 05/16/2025 9:10 AM EST Pulse 61 05/16/2025 9:10 AM EST Temperature 36.5 C (97.7 F) 05/16/2025 9:10 AM EST Respiratory Rate 20 05/16/2025 9:10 AM EST Oxygen Saturation 99% 05/16/2025 9:10 AM EST Inhaled Oxygen Concentration - - Weight 68.9 kg (152 lb) 05/16/2025 9:10 AM EST Height 157.5 cm (5' 2 ) 05/16/2025 9:10 AM EST Body Mass Index 27.8 05/16/2025 9:10 AM EST documented in this encounter Progress Notes * Steven Sher MD - 05/16/2025 9:00 AM EST SUBJECTIVE Anayeli Avelar is a 64 y.o. female who presents for Follow-up. Anayeli Avelar, 64-year-old female - No episodes of hypoglycemia with blood sugar below 70 since last visit - Reports weight loss of 9 lbs since February 13, 2025 - Denies current skin symptoms - Intolerant to statins due to adverse effects Problem List[1] Allergies[2] Medications Ordered Prior to Encounter[3] Review of Systems Constitutional: Negative for appetite change, chills and diaphoresis. Eyes: Negative for photophobia, pain and redness. Respiratory: Negative for cough, shortness of breath and stridor. Cardiovascular: Negative for leg swelling. Gastrointestinal: Negative for constipation and diarrhea. Musculoskeletal: Negative for gait problem, joint swelling and myalgias. OBJECTIVE Vitals: 05/16/25 0910 BP: 103/54 BP Location: Left arm Patient Position: Sitting BP Cuff Size: Adult Pulse: 61 Resp: 20 Temp: 97.7 ??F (36.5 ??C) TempSrc: Oral SpO2: 99% Weight: 152 lb (68.9 kg) Height: 5' 2 (1.575 m) Physical Exam Constitutional: General: She is not in acute distress. Appearance: Normal appearance. She is not ill-appearing, toxic-appearing or diaphoretic. Cardiovascular: Rate and Rhythm: Normal rate. Heart sounds: No murmur heard. Pulmonary: Effort: Pulmonary effort is normal. No respiratory distress. Breath sounds: No wheezing. Abdominal: Palpations: Abdomen is soft. Neurological: Mental Status: She is alert. Psychiatric: Mood and Affect: Mood normal. Assessment/Plan Assessment/Plan Diagnoses and all orders for this visit: Type 2 diabetes mellitus with diabetic polyneuropathy, without long-term current use of insulin (HCC) Comments: A1c at goal Pt needs diabetic shoes. Monofilament : abnormal. Orders: - POCT Glucose - POCT Hgb A1c JASON (generalized anxiety disorder) Hypercholesterolemia - Lipid Panel, Standard; Future Primary hypertension Type 2 diabetes mellitus with diabetic polyneuropathy, without long-term current use of insulin (HCC): - Diabetes is well controlled. Diabetic polyneuropathy present, with abnormal monofilament test. - Continue current diabetes medications ( Ozempic 0.5 mg). Monitor for hypoglycemia, especially if blood glucose drops below 70 mg/dL. Ordered diabetes labs. Referral for diabetic shoes initiated. Follow-up in 3 months. Hypercholesterolemia: - Hypercholesterolemia present. Statin intolerance reported. - Referral to endocrinology for evaluation of alternative lipid-lowering therapy, as primary care cannot prescribe certain medications. Endocrinology to determine appropriateness of further therapy. Primary hypertension: - Blood pressure is low, particularly diastolic pressure (second number). Weight loss noted, contributing to improved blood pressure control. - Adjusted lisinopril dose to 5 mg once daily. Instructed to monitor blood pressure at home, ensuring diastolic pressure remains above 60 mmHg. Continue monitoring and follow-up in 3 months. Pruritus/dermatologic symptoms: - No active dermatologic lesions at time of visit. Previous use of clobetasol cream discussed. - Prescribed clobetasol cream for limited use if symptoms recur. Advised on limited duration of usedue to potency. Instructed to report if new skin symptoms develop. - Risks and side effects: Discussed potential for skin thinning and rebound effect with prolonged use of clobetasol. [1] Patient Active Problem List Diagnosis Depressive disorder Hypercholesterolemia Type 2 diabetes mellitus (HCC) Myalgia Poor balance Primary hypertension Diabetic polyneuropathy associated with type 2 diabetes mellitus (HCC) Vasomotor symptoms due to menopause Breast pain in female JASON (generalized anxiety disorder) [2] Allergies Allergen Reactions Vitamin E Hives [3] Current Outpatient Medications on File Prior to Visit Medication Sig Dispense Refill amitriptyline (Elavil) 10 MG tablet Take 1 tablet (10 mg) by mouth at bedtime. 90 tablet 3 atorvastatin (Lipitor) 40 MG tablet Take 1 tablet (40 mg) by mouth Once per day. 30 tablet 11 bacitracin (RA Bacitracin) 500 UNIT/GM ointment Apply topically 2 times daily. 14 g 0 clonazePAM (KlonoPIN) 0.5 MG tablet Take 0.5 mg by mouth 2 times daily. clotrimazole (Lotrimin) 1 % cream Apply topically 2 times daily. (Patient not taking: Reported on 09/04/2024) 30 g 2 Diclofenac Sodium 1 % gel Apply (2G) by topical route 2 times every day to the affected area(s) (Patient not taking: Reported on 09/04/2024) 100 g 2 empagliflozin (Jardiance) 10 MG TAKE 1 TABLET BY MOUTH EVERY MORNING 30 tablet 1 ezetimibe (Zetia) 10 MG tablet Take 1 tablet (10 mg) by mouth Once per day. 30 tablet 11 fenofibrate (Tricor) 48 MG tablet Take 1 tablet (48 mg) by mouth Once per day. 30 tablet 11 FLUoxetine (PROzac) 20 MG tablet Take 20 mg by mouth. (Patient not taking: Reported on 09/04/2024) gabapentin (Neurontin) 100 MG capsule Take 2 capsules by mouth every 8 (eight) hours. (Patient not taking: Reported on 09/04/2024) glimepiride (Amaryl) 1 MG tablet Take 1 tablet by mouth every 12 (twelve) hours. (Patient not taking: Reported on 09/04/2024) glucose blood (FREESTYLE LITE) test strip FS fasting and 2 hours after dinner. 100 each 11 hydrocortisone (Anusol-HC) 2.5 % rectal cream Insert into the rectum 2 times daily. (Patient not taking: Reported on 09/04/2024) 28 g 0 lisinopril 10 MG tablet TAKE 1 TABLET BY MOUTH EVERY DAY 30 tablet 11 metFORMIN (Glucophage) 500 MG tablet Take 1 tablet (500 mg) by mouth every 12 (twelve) hours. (Patient not taking: Reported on 09/04/2024) 60 tablet 11 methocarbamol (Robaxin) 750 MG tablet Take 1 tablet by mouth every 6 (six) hours. (Patient not taking: Reported on 09/04/2024) Misc. Devices misc To wear daily Multiple Vitamins-Minerals (PreserVision AREDS 2) capsule Take 1 capsule by mouth 2 times daily. semaglutide (Ozempic) 2 MG/1.5ML solution pen-injector Inject 0.5 mg under the skin 1 (one) time per week. 1 each 12 Sodium Fluoride 1.1 % cream [place] teeth for 2 minutes, morning and night. Spit, do not rinse. Do not eat or drink anything for 30 minutes following use. 112 g 3 SUMAtriptan (Imitrex) 25 MG tablet TAKE 1 TABLET BY MOUTH 1 TIME AT ONSET OF MIGRAINE WITH FLUID. MAY REPEAT AFTER 2 HOURS. IF HEADACHE RETURNS. NOT TO EXCEED 200 MGIN 24 HOURS (Patient not taking: Reported on 09/04/2024) Trulicity 0.75 MG/0.5ML solution pen-injector (Patient not taking: Reported on 09/04/2024) zoster vaccine-recombinant adjuvanted (Shingrix) 50 MCG/0.5ML vaccine Inject 0.5 mL into the shoulder, thigh, or buttocks. (Patient not taking: Reported on 09/04/2024) [DISCONTINUED] empagliflozin (Jardiance) 25 MG Take 1 tablet (25 mg) by mouth Once per day. (Patient not taking: Reported on 09/04/2024) 30 tablet 11 No current facility-administered medications on file prior to visit. documented in this encounter Plan of Treatment Upcoming Encounters Date Type Department Care Team (Late st Contact Info) Description 07/03/2025 10:15 AM EST Office Visit [facility] AD[facility] [address] [place] [phone] Godfrey Sher 08/20/2025 10:45 AM EST Office Visit [facility] [address] [place] [address] Steven Sher MD [address] [place] [address] Scheduled Referrals Name Type Priority Associated Diagnoses Order Schedule Referral to Endocrinology Outpatient Referral Routine Hypercholesterolemi a Expected: 05/16/2025 (Approximate), Expires: 05/16/2026 documented as of this encounter Goals Goal Patient Goal Type Associated Problems Recent Progress Patient-Stated? Author Help patients manage their type 2 diabetes Care Plan Help patients manage their type 2 diabetes Amairani Ravi [place] Weekly blood pressure task Care Plan Weekly blood pressure task Amairani Ravi MA Help patients manage their type 2 diabetes Care Plan Help patients manage their type 2 diabetes Amairani Ravi [place] Patient has chronic kidney disease Care Plan Patient has chronic kidney disease Amairani Ravi [place] Help patients manage their type 2 diabetes Care Plan Help patients manage their type 2 diabetes Amairani Ravi [place] Patient has diabetic neuropathy Care Plan Patient has diabetic neuropathy Amairnai Ravi [place] Weekly blood pressure task Care Plan Weekly blood pressure task Amairani Ravi [place] Weekly blood pressure task Care Plan Weekly blood pressure task No Amairani [place] Patient has chronic kidney disease Care Plan Patient has chronic kidney disease No Amairani [place] Patient has chronic kidney disease Care Plan Patient has chronic kidney disease No Amairani [place] Patient has diabetic neuropathy Care Plan Patient has diabetic neuropathy No Amairani [place] Patient has diabetic neuropathy Care Plan Patient has diabetic neuropathy No Amairani [place] Weekly blood pressure task Care Plan Weekly blood pressure task No Amairani [place] Weekly blood pressure task Care Plan Weekly blood pressure task No Amairani [place] Weekly blood pressure task Care Plan Weekly blood pressure task No Amairani [place] Patient has chronic kidney disease Care Plan Patient has chronic kidney disease No Amairani [place] Patient has chronic kidney disease Care Plan Patient has chronic kidney disease No Amairani [place] Patient has chronic kidney disease Care Plan Patient has chronic kidney disease No Amairani [place] Patient has diabetic neuropathy Care Plan Patient has diabetic neuropathy No Amairani [place] Patient has diabetic neuropathy Care Plan Patient has diabetic neuropathy No Amairani [place] Patient has diabetic neuropathy Care Plan Patient has diabetic neuropathy No Amairani [place] documented as of this encounter Procedures Procedure Name Priority Date/Time Associated Diagnosis Comments LIPID PANEL, STANDARD Routine 05/16/2025 10:11 AM EST Hypercholesterolemi a POCT GLUCOSE Routine 05/16/2025 9:14 AM EST Type 2 diabetes mellitus with diabetic polyneuropathy, without long-term current use of insulin (HCC) POCT GLYCATED HEMOGLOBIN, TOTAL Routine 05/16/2025 9:13 AM EST Type 2 diabetes mellitus with diabetic polyneuropathy, without long-term current use of insulin (HCC) documented in this encounter Results * (ABNORMAL) Lipid Panel, Standard (05/16/2025 10:11 AM EST) Triglycerides 178(H) <150 mg/dL [facility] Comment:Desirable Triglyceri de: less than 150 mg/dLBorderline High Triglyceride 150-199 mg/dLHigh Triglyceride: 200-499 mg/dLVery High Triglyceride: greater than or equal to 5OO mg/dL Cholesterol 187 <200 mg/dL [facility] Comment:Desirable Cholestero l: less than 200 mg/dLBorderline High Cholesterol: 200-239 mg/dLHigh Cholesterol: greater than 239 mg/dL LDL Cholesterol Calculated 112(H) <100 mg/dL [facility] Comment:Desirable LDL: less than 100 mg/dLNear Optimal/Above Optimal LDL: 110- 129 mg/dLBorderline High LDL: 130-159 mg/dLHigh LDL: 160-189 mg/dLVery High LDL: greater than or equal to 190 mg/dL HDL Cholesterol 40(L) >40 mg/dL [facility] Comment:Desirable HDL: great er than 40 mg/dL Note: This HDL assay may give artificially low results in patients with liver disease. Blood Venous blood specimen / Unknown 05/16/2025 10:11 AM EST 05/16/2025 2:06 PM EST us Steven Sher MD LAB BLOOD ORDERABLES Final Result [facility] [address] [place] [phone] * POCT Glucose (05/16/2025 9:14 AM EST) Glucose Blood, POC 167 60 - 200 mg/dL [employer] Lot # [id number] Comment:fasting Lot# Expiration Date Blood Capillary blood specimen / Unknown 05/16/2025 9:14 AM EST Steven Sher MD POINT OF CARE TEST ENTER/ED IT ORDERABLES Final Result * POCT Hgb A1c (05/16/2025 9:13 AM EST) Hemoglobin A1C 5.4 4.0 - 5.7 % [employer] Lot # [id number] Lot# Expiration Date ,[id number] Blood 05/16/2025 9:13 AM EST Steven Sher MD POINT OF CARE TEST ENTER/ED IT ORDERABLES Final Result documented in this encounter Visit Diagnoses Diagnosis Type 2 diabetes mellitus with diabetic polyneuropathy, without long-term current use of insulin (HCC)- Primary JASON (generalized anxiety disorder) Generalized anxiety disorder Hypercholesterolemia Pure hypercholesterolemia Primary hypertension Unspecified essential hypertension documented in this encounter Additional Health Concerns Active Problems Noted Date Diagnosed Date Help patients manage their type 2 diabetes 05/15 Weekly blood pressure task 05/15/2025 Help patients manage their type 2 diabetes 05/15 Patient has chronic kidney disease 05/15/2025 Help patients manage their type 2 diabetes 05/15 Patient has diabetic neuropathy 05/15/2025 Weekly blood pressure task 05/15/2025 Weekly blood pressure task 05/15/2025 Patient has chronic kidney disease 05/15/2025 Patient has chronic kidney disease 05/15/2025 Patient has diabetic neuropathy 05/15/2025 Patient has diabetic neuropathy 05/15/2025 Weekly blood pressure task 05/15/2025 Weekly blood pressure task 05/15/2025 Weekly blood pressure task 05/15/2025 Patient has chronic kidney disease 05/15/2025 Patient has chronic kidney disease 05/15/2025 Patient has chronic kidney disease 05/15/2025 Patient has diabetic neuropathy 05/15/2025 Patient has diabetic neuropathy 05/15/2025 Patient has diabetic neuropathy 05/15/2025 Assessment Noted Time PHQ-9 Depression Total Score: 16 08/2 025 10:43 AM EDT documented as of this encounter Care Teams Roll Coverer Relationship Specialty Start Date End Date Steven Sher MD [address] [place] [phone] PCP - General Internal Medicine 07/06/18 documented as of this encounter
[2025-05-16 15:36] LABS: Cholesterol 187 mg/dL (<200); HDL Cholesterol 40 mg/dL (>40); Triglycerides 178 mg/dL (<150)
--- OUTSIDE RECORDS SUMMARY | 2025-05-16 19:19 | XMS_ITS | Encounter Summary ---
Author Organization [employer] Address [address] [facility] 7t [place] [address] Care Team Providers Care Science Instructor Name Role Phone Steven Sher MD Primary Care Provider [phone]- [phone] Reason for Referral * Imaging (Routine) - Closed Specialty Diagnoses / Procedures Referred By Contac t Referred To Contact Radiology Diagnoses Transaminitis Procedures US Abdomen Complete Steevn Sher MD [address] [place] [address] Phone: tel: fax: [address] Phone: tel: fax: Referral ID Status Reason Start Date Expiration Date Visits Re quested Visits Authorized [id number] Closed 01/24/2024 01/23/2025 1 1 Encounter Details Date Type Department Care Team ([facility] st Contact Info) Description 01/24/2024 Orders Only [facility] [address] [place] [address] Steven Sher MD [address] [place] [address] Transaminitis (Primary Dx); Hypercholesterolemia Social History Tobacco [...] Description 07/03/2025 10:15 AM EST Office Visit [facility] AD[facility] [address] [place] [address] Godfrey Sher 08/20/2025 10:45 AM EST Office Visit [facility] [address] [place] [address] Steven Sher MD [address] [place] [address] documented as of this encounter Procedures Procedure [...] AM EDT) Hepatitis C Antibody Nonreactive Nonreactive [facility] Comment:Antibodies to HCV no t detected; does not exclude early acuteHCV infection. Blood Venous blood specimen / Unknown 01/26/2024 9:28 AM EDT 01/26/2024 2:24 PM EDT Steven Sher MD LAB BLOOD ORDERABLES Final Result Performing Organization Address [facility] Co de Phone Number [facility] [address] [place] [phone] * Hepatitis B Surface Antibody, Qualitative (01/26/2024 9:28 AM EDT) ~Hepatitis B Surface Antibody NONREACTIVE Nonreactive [facility] Comment:Nonreactive: < 8.00 mIU/mL Blood Venous blood specimen / Unknown 01/26/2024 9:28 AM EDT 01/26/2024 2:24 PM EDT Steven Sher MD LAB BLOOD ORDERABLES Final Result Performing Organization Address [facility] Co de Phone Number [facility] [address] [place] [phone] documented in this encounter Visit Diagnoses Diagnosis Transaminitis- Primary Nonspecific elevation of levels of transaminase or lactic acid dehydrogenase (LDH) Hypercholesterolemia Pure hypercholesterolemia documented in this encounter Additional Health Concerns Assessment Noted Time PHQ-9 Depression Total Score: 4 10/01/19 23 10:38 AM EDT documented as of this encounter Care Teams Science Instructor Relationship Specialty Start Date End Date Steven Sher MD [address] [place] [phone] PCP - General Internal Medicine 07/06/18 documented as of this encounter
--- OUTSIDE RECORDS SUMMARY | 2025-05-16 19:19 | XMS_ITS | Encounter Summary ---
Author Organization [employer] Address [address] [facility] [address] 7[address] [place] [address] Care Team Providers Care Sex Worker Or Escort Name Role Phone Steven Sher MD Primary Care Provider [phone]- [phone] Reason for Visit * Reason Onset Date Comments New Med Request 02/10/2024 Encounter Details Date Type Department Care Team (Late st Contact Info) Description 02/10/2024 Telephone [facility] MEDICINE [address] [place] [address] Steven Sher MD [address] [place], [place] [phone] New Med Request Social History Tobacco Use [...] requesting a new script, pt is requesting Mounjaro. documented in this encounter Plan of Treatment Upcoming Encounters Date Type Department Care Team (Late st Contact Info) Description 07/03/2025 10:15 AM EST Office Visit [facility] ADULT [facility] [address] [place] [address] Godfrey Sher 08/20/2025 10:45 AM EST Office Visit [facility] PED[facility] [address] [place] [address] Steven Sher MD [address] [place] [address] documented as of this encounter Visit Diagnoses Not on filedocumented in this encounter Additional Health Concerns Assessment Noted Time PHQ-9 Depression Total Score: 4 10/01/19 10:38 AM EDT documented as of this encounter Care Teams Sex Worker Or Escort Relationship Specialty Start Date End Date Steven Sher MD [address] [place] [phone] PCP - General Internal Medicine 07/06/18 documented as of this encounter
--- OUTSIDE RECORDS SUMMARY | 2025-05-16 19:19 | XMS_ITS | Encounter Summary ---
Author Organization [employer] Address [address] [facility] 7 [place] [address] Care Team Providers Care Appeals And Generalist Clerk Name Role Phone Steven Sher MD Primary Care Provider [phone]- [phone] Reason for Referral * Consultation (Routine) - Closed Specialty Diagnoses / Procedures Referred By Contac t Referred To Contact Podiatry Diagnoses Superficial white onychomycosis Steven Sher MD [address] [place] [address] Phone: tel: fax: Keon Rueda DPM [address] [facility] [address] [place] [phone] Phone: tel: fax: Referral ID Status Reason Start Date Expiration Date V isits Requested Visits Authorized [id number] Closed Specialty Services Required 07/11/2024 07/11/2025 1 1 Encounter Details Date Type Department Care Team ([facility] Contact Info) Description 07/11/2024 Orders Only [facility] PEDS [address] [place] [address] Steven Sher MD [address] [place] [address] Superficial white onychomycosis (Primary Dx) Social History [...] [facility] [address] [place] [address] Godfrey Sher 08/20/2025 10:45 AM EST Office Visit [facility] [address] [place] [address] Steven Sher MD [address] [place] [address] Scheduled Referrals Name Type Priority Associated Diagnoses Orde r Schedule Referral to Podiatry Outpatient Referral Routine Superficial white onychomycosis Expected: 07/11/2024 (Approximate), Expires: 07/11/2025 documented as of this encounter Visit Diagnoses Diagnosis Superficial white onychomycosis- Primary documented in this encounter Additional Health Concerns Assessment Noted Time PHQ-9 Depression Total Score: 4 10/01/19 10:38 AM EDT documented as of this encounter Care Teams Appeals And Generalist Clerk Relationship Specialty Start Date End Date Steven Sher MD [address] [place] [phone] PCP - General Internal Medicine 07/06/18 documented as of this encounter
--- OUTSIDE RECORDS SUMMARY | 2025-05-16 19:19 | XMS_ITS | Encounter Summary ---
Author Organization [employer] Address [address] [facility] 7t [place] [address] Care Team Providers Care Yarder Operator Name Role Phone Steven Sher MD Primary Care Provider [phone]- [phone] Reason for Visit * Reason Comments Med Refill Encounter Details Date Type Department Care Team ([facility] st Contact Info) Description 06/24/2023 Refill [facility] MED & PEDS [address] [place] [address] Steven Sher MD [address] [place] [address] Type 2 diabetes mellitus with diabetic neuropathy, with long-term current use of insulin ([facility]) Social History Tobacco Use Types Packs/Day Years [...] Description 07/03/2025 10:15 AM EST Office Visit [facility] ADULT DENTAL [address] [place] [address] Godfrey Sher 08/20/2025 10:45 AM EST Office Visit [facility] MED & PEDS [address] [place] [address] Steven Sher MD [address] [place] [address] documented as of this encounter Visit Diagnoses Diagnosis Type 2 diabetes mellitus with diabetic neuropathy, with long-term current use of insulin (HCC) documented in this encounter Additional Health Concerns Assessment Noted Time PHQ-9 Depression Total Score: 4 10/01/19 23 10:38 AM EDT documented as of this encounter Care Teams Yarder Operator Relationship Specialty Start Date End Date Steven Sher MD [address] [place] [address] PCP - General Internal Medicine 07/06/18 documented as of this encounter
--- OUTSIDE RECORDS SUMMARY | 2025-05-16 19:19 | XMS_ITS | Encounter Summary ---
Author Organization [employer] Address [address] [facility] [address]t [place] [address] Care Team Providers Care Animal Health Technician Name Role Phone Steven Sher MD Primary Care Provider +1- [phone] Reason for Visit * Reason Comments Med Refill Encounter Details Date Type Department Care Team (Late st Contact Info) Description 07/31/2024 Refill [facility] MEDICINE [address] [place], [place] [phone] Steven Sher MD [address] [place], [place] [phone] Social History Tobacco Use Types Packs/Day Years [...] Description 07/03/2025 10:15 AM EST Office Visit [facility] ADULT DENTAL 505 [place] [address] Godfrey Sher 08/20/2025 10:45 AM EST Office Visit [facility] MED & PEDS [address] [place] [address] Steven Sher MD [address] [place] [address] documented as of this encounter Visit Diagnoses Not on filedocumented in this encounter Additional Health Concerns Assessment Noted Time PHQ-9 Depression Total Score: 4 10/01/19 23 10:38 AM EDT documented as of this encounter Care Teams Animal Health Technician Relationship Specialty Start Date End Date Steven Sher MD [address] [place] [address] PCP - General Internal Medicine 07/06/18 documented as of this encounter
--- OUTSIDE RECORDS SUMMARY | 2025-05-16 19:19 | XMS_ITS | Encounter Summary ---
Author Organization [employer] Address 75 [facility] 7t [place] [address] Care Team Providers Care Vendor Management Associate Name Role Phone Steven Sher MD Primary Care Provider +1- [phone] Reason for Visit * Reason Comments Med Refill Encounter Details Date Type Department Care Team ([facility] st Contact Info) Description 08/12/2023 Refill [facility] 505 [place] [address] Steven Sher MD [address] [place] [address] Social History Tobacco Use Types Packs/Day Years [...] Description 07/03/2025 10:15 AM EST Office Visit [facility] ADULT DENTAL 505 [place] [address] Godfrey Sher 08/20/2025 10:45 AM EST Office Visit [facility] MED & PEDS 505 [place] [address] Steven Sher MD [address] [place] [address] documented as of this encounter Visit Diagnoses Not on filedocumented in this encounter Additional Health Concerns Assessment Noted Time PHQ-9 Depression Total Score: 4 10/01/19 23 10:38 AM EDT documented as of this encounter Care Teams Vendor Management Associate Relationship Specialty Start Date End Date Steven Sher MD [address] [place] [address] PCP - General Internal Medicine 07/06/18 documented as of this encounter
--- OUTSIDE RECORDS SUMMARY | 2025-05-16 19:19 | XMS_ITS | Encounter Summary ---
Author Organization [email or web address] Address 75 [facility] [address] 7t [place] [address] Care Team Providers Care Fish And Wildlife Biologist Name Role Phone Steven Sher MD Primary Care Provider +1- [phone] Reason for Visit * Reason Onset Date Comments New Med Request 11/10/2024 Encounter Details Date Type Department Care Team (Late st Contact Info) Description 11/10/2024 Telephone [facility] MEDICINE [address] [place] [address] Steven Sher MD [address] [place], [place] [phone] New Med Request Social History Tobacco Use [...] encounter Miscellaneous Notes * Telephone Encounter - Martha Wills - 11/10/2024 1:34 PM EDT Tc from pt requesting a callback for 2x Please return call [phone] * Telephone Encounter - Martha Wills - 11/10/2024 9:19 AM EDT Tc from pt requesting medication Lidocaine , pt reports can't handle pain in body. Pt denied triageas was triage 11/09. documented in this encounter Plan of Treatment Upcoming Encounters Date Type Department Care Team (Late st Contact Info) Description 07/03/2025 10:15 AM EST Office Visit [facility] ADULT DENTAL 505 [place] [address] Godfrey Sehr 08/20/2025 10:45 AM EST Office Visit [facility] MED & PEDS 505 [place] [address] Steven Sher MD 505 [place] [address] documented as of this encounter Visit Diagnoses Not on filedocumented in this encounter Additional Health Concerns Assessment Noted Time PHQ-9 Depression Total Score: 13 025 11:41 AM EDT documented as of this encounter Care Teams Fish And Wildlife Biologist Relationship Specialty Start Date End Date Steven Sher MD [address] [place] [address] PCP - General Internal Medicine 07/06/18 documented as of this encounter
--- OUTSIDE RECORDS SUMMARY | 2025-05-16 19:19 | XMS_ITS | Encounter Summary ---
Author Organization [employer] Address [address] [facility] [address] 7t [place] [address] Care Team Providers Care It Architecture Analyst Name Role Phone Steven Sher MD Primary Care Provider +1- [phone] Encounter Details Date Type Department Care Team (Late st Contact Info) Description 12/05/2024 Orders Only [facility] MED & PEDS [address] [place], [place] [phone] Steven Sher MD 505 [place] [address] Type 2 diabetes mellitus without complication, with long-term current use of insulin ([facility]) (Primary Dx) Social History Tobacco Use Types [...] Description 07/03/2025 10:15 AM EST Office Visit [facility] ADULT DENTAL [address] [place] [address] Godfrey Sher 08/20/2025 10:45 AM EST Office Visit [facility] MED & PEDS [address] [place] [address] Steven Sher MD 505 [place] [address] documented as of this encounter Visit Diagnoses Diagnosis Type 2 diabetes mellitus without complication, with long-term current use of insulin (HCC)- Primary documented in this encounter Additional Health Concerns Assessment Noted Time PHQ-9 Depression Total Score: 13 025 11:41 AM EDT documented as of this encounter Care Teams It Architecture Analyst Relationship Specialty Start Date End Date Steven Sher MD 505 [place] [address] PCP - General Internal Medicine 07/06/18 documented as of this encounter
--- OUTSIDE RECORDS SUMMARY | 2025-05-16 19:19 | XMS_ITS | Encounter Summary ---
Author Organization [employer] Address 75 [facility] 7t [place] [address] Care Team Providers Care Makeup Sales Consultant Name Role Phone Steven Sher MD Primary Care Provider +1- [phone] Reason for Visit * Reason Onset Date Comments Referral 01/03/2025 Encounter Details Date Type Department Care Team ([facility] st Contact Info) Description 01/03/2025 Telephone [facility] 505 [place] [address] Steven Sher MD 505 [place] [address] Referral Social History Tobacco Use Types Packs/Day Years [...] encounter Miscellaneous Notes * Telephone Encounter - Lasha Dang - 01/09/2025 9:30 AM EDT Tc from pt calling in regards to message prior stating she has not received update on referral. * Telephone Encounter - Stanley Wyatt - 01/03/2025 11:13 AM EDT Tc from pt requesting a referral to see a Loftsman/Woman. Address is [address] [place] [address] Fax is [phone] Facility number is [phone] Pt will like to be notified when the referral was sent out. Contact pt at [phone] documented in this encounter Plan of Treatment Upcoming Encounters Date Type Department Care Team (Late st Contact Info) Description 07/03/2025 10:15 AM EST Office Visit [facility] ADULT DENTAL [address] [place] [address] Godfrey Sher 08/20/2025 10:45 AM EST Office Visit [facility] MED & PEDS [address] [place] [address] Steven Sher MD [address] [place] [address] documented as of this encounter Visit Diagnoses Not on filedocumented in this encounter Additional Health Concerns Assessment Noted Time PHQ-9 Depression Total Score: 13 025 11:41 AM EDT documented as of this encounter Care Teams Makeup Sales Consultant Relationship Specialty Start Date End Date Steven Sher MD 505 [place] [address] PCP - General Internal Medicine 07/06/18 documented as of this encounter
--- OUTSIDE RECORDS SUMMARY | 2025-05-16 19:19 | XMS_ITS | Encounter Summary ---
Author Organization [employer] Address [address] [facility] [address] [place] [address] Care Team Providers Care Amusement Centre Manager Name Role Phone Steven Sher MD Primary Care Provider +1- [phone] Reason for Visit * Reason Onset Date Comments New Med Request 02/16/2024 Encounter Details Date Type Department Care Team (Late st Contact Info) Description 02/16/2024 Telephone [facility] MEDICINE 230 [place] [address] Steven Sher MD [address] [place], [place] [phone] New Med Request Social History Tobacco Use [...] Description 07/03/2025 10:15 AM EST Office Visit [facility] ADULT DENTAL [address] [place] [address] Godfrey Sher 08/20/2025 10:45 AM EST Office Visit [facility] MED & PEDS [address] [place] [address] Steven Sher MD 505 [place] [address] documented as of this encounter Visit Diagnoses Not on filedocumented in this encounter Additional Health Concerns Assessment Noted Time PHQ-9 Depression Total Score: 4 10/01/19 23 10:38 AM EDT documented as of this encounter Care Teams Amusement Centre Manager Relationship Specialty Start Date End Date Steven Sher MD 505 [place] [address] PCP - General Internal Medicine 07/06/18 documented as of this encounter
--- OUTSIDE RECORDS SUMMARY | 2025-05-16 19:19 | XMS_ITS | Encounter Summary ---
Author Organization [employer] Address 75 [facility] 7t [place] [address] Care Team Providers Care Brake Linings Coater Name Role Phone Steven Sher MD Primary Care Provider +1- [phone] Reason for Visit * Reason Onset Date Comments Chart Prep 05/15/2025 Encounter Details Date Type Department Care Team ([facility] st Contact Info) Description 05/15/2025 Telephone [facility] MED & PEDS [address] [place] [address] Steven Sher MD 505 [place] [address] Chart Prep Social History Tobacco Use Types Packs/Day Years [...] encounter Miscellaneous Notes * Telephone Encounter - Amairani Jackson MA - 05/15/2025 1:25 PM EST Chart Prep Labs: done Images: not done Referrals: complete Vaccines due: due Screenings: foot exam and STI screening Overdue care gaps: Glucose and Disability screen documented in this encounter Plan of Treatment Upcoming Encounters Date Type Department Care Team (Late st Contact Info) Description 07/03/2025 10:15 AM EST Office Visit [facility] ADULT DENTAL [address] [place] [address] Godfrey Sher 08/20/2025 10:45 AM EST Office Visit [facility] MED & PEDS [address] [place] [address] Steven Sher MD 505 [place] [address] documented as of this encounter Goals Goal [...] Help patients manage their type 2 diabetes No Amairani Jackson MA Patient has diabetic [...] has chronic kidney disease Amairani Ravi [place] Patient has diabetic neuropathy Care Plan Patient has diabetic neuropathy No Amairani Jackson MA Patient has diabetic neuropathy Care Plan Patient has diabetic neuropathy No Amairani Jackson MA Patient has diabetic neuropathy Care Plan Patient has diabetic neuropathy Amairani Ravi [place] documented as of this encounter Visit Diagnoses Not on filedocumented in this encounter Additional Health Concerns Active [...] Noted Time PHQ-9 Depression Total Score: 16 025 10:43 AM EDT documented as of this encounter Care Teams Brake Linings Coater Relationship Specialty Start Date End Date Steven Sher MD [address] [place] [address] PCP - General Internal Medicine 07/06/18 documented as of this encounter
--- OUTSIDE RECORDS SUMMARY | 2025-05-16 19:19 | XMS_ITS | Encounter Summary ---
Author Organization [employer] Address 75 [facility] 7t [place] [address] Care Team Providers Care Manager Treasury Name Role Phone Steven Sher MD Primary Care Provider +1- [phone] Encounter Details Date Type Department Care Team (Late st Contact Info) Description 12/26/2024 Orders Only [facility] [address] [place], [place] [phone] Provider, MD Dylan Social History Tobacco Use Types Packs/Day Years [...] Description 07/03/2025 10:15 AM EST Office Visit [facility] ADULT DENTAL 505 [place] [address] Godfrey Sher 08/20/2025 10:45 AM EST Office Visit [facility] MED & PEDS [address] [place] [address] Steven Sher MD 505 [place] [address] documented as of this encounter Procedures Procedure Name Priority Date/Time Associated Diagnosis Comments DIABETES EYE EXAM Routine 12/25/2024 1:47 PM EDT documented in this encounter Results * Hm Diabetes Eye Exam (12/25/2024 1:47 PM EDT) Historical Provider HEALTH MAINTENANCE Final Result documented in this encounter Visit Diagnoses Not on filedocumented in this encounter Additional Health Concerns Assessment Noted Time PHQ-9 Depression Total Score: 13 025 11:41 AM EDT documented as of this encounter Care Teams Manager Treasury Relationship Specialty Start Date End Date Steven Sher MD [address] [place] [address] PCP - General Internal Medicine 07/06/18 documented as of this encounter
--- OUTSIDE RECORDS SUMMARY | 2025-05-16 19:19 | XMS_ITS | Encounter Summary ---
Author Organization [employer] Address [address] [facility] [address] 7t [place] [address] Care Team Providers Care Flux Mixer Name Role Phone Steven Sher MD Primary Care Provider +1- [phone] Reason for Visit * Reason Onset Date Comments PA approval for crown 07/11/2024 Encounter Details Date Type Department Care Team ([facility] st Contact Info) Description 07/11/2024 Telephone [facility] 505 [place] [address] Hamilton Germain, MEGAN 505 [place] [address] PA approval for crown Social History Tobacco [...] [facility] ADULT DENTAL 505 [place] [address] Godfrey Sher 08/20/2025 10:45 AM EST Office Visit [facility] MED & PEDS 505 [place] [address] Steven Sher MD 505 [place] [address] documented as of this encounter Visit Diagnoses Not on filedocumented in this encounter Additional Health Concerns Assessment Noted Time PHQ-9 Depression Total Score: 4 10/01/19 23 10:38 AM EDT documented as of this encounter Care Teams Flux Mixer Relationship Specialty Start Date End Date Steven Sher MD [address] [place] [address] PCP - General Internal Medicine 07/06/18 documented as of this encounter
--- OUTSIDE RECORDS SUMMARY | 2025-05-16 19:19 | XMS_ITS | Encounter Summary ---
Author Organization [employer] Address 75 [facility] 7t [place] [address] Care Team Providers Care Publicity Consultant Name Role Phone Steven Sher MD Primary Care Provider +1- [phone] Reason for Visit * Reason Onset Date Comments Med Refill 08/16/2024 Encounter Details Date Type Department Care Team ([facility] st Contact Info) Description 08/16/2024 Telephone [facility] 505 [place] [address] Steven Sher MD 505 [place] [address] Med Refill Social History Tobacco Use Types [...] Miscellaneous Notes * Telephone Encounter - Megan Kellie - 08/16/2024 12:31 PM EST TC from pt requesting medication refill. Medications needing refill : clotrimazole cream To be sent to: [id number] - [place], [place] - [address] Pt is requesting above medication but did not see on med list. Informs was last prescribed by pcp. documented in this encounter Plan of Treatment Upcoming Encounters Date Type Department Care Team (Late st Contact Info) Description 07/03/2025 10:15 AM EST Office Visit [facility] ADULT DENTAL 505 [place] [address] Godfrey Sher 08/20/2025 10:45 AM EST Office Visit [facility] MED & PEDS [address] [place] [address] Steven Sher MD 505 [place] [address] documented as of this encounter Visit Diagnoses Not on filedocumented in this encounter Additional Health Concerns Assessment Noted Time PHQ-9 Depression Total Score: 4 10/01/19 10:38 AM EDT documented as of this encounter Care Teams Publicity Consultant Relationship Specialty Start Date End Date Steven Sher MD 505 [place] [address] PCP - General Internal Medicine 07/06/18 documented as of this encounter
--- OUTSIDE RECORDS SUMMARY | 2025-05-16 19:19 | XMS_ITS | Encounter Summary ---
Author Organization [employer] Address 75 [facility] 7t [place] [address] Care Team Providers Care Substance Abuse Therapist Name Role Phone Steven Sher MD Primary Care Provider +1- [phone] Reason for Visit * Reason Comments Med Refill Encounter Details Date Type Department Care Team ([facility] st Contact Info) Description 01/13/2025 Refill [facility] 505 [facility] [place] [address] Steven Sher MD 505 [place] [address] Social History Tobacco Use Types Packs/Day Years [...] is your housing situation today? I have alejandar baker 11/07/[address] you [...] Description 07/03/2025 10:15 AM EST Office Visit [facility] ADULT DENTAL 505 [place] [address] Godfrey Sher 08/20/2025 10:45 AM EST Office Visit [facility] MED & PEDS 505 [place] [address] Steven Sher MD [address] [place] [address] documented as of this encounter Visit Diagnoses Not on filedocumented in this encounter Additional Health Concerns Assessment Noted Time PHQ-9 Depression Total Score: 13 025 11:41 AM EDT documented as of this encounter Care Teams Substance Abuse Therapist Relationship Specialty Start Date End Date Steven Sher MD [address] [place] [address] PCP - General Internal Medicine 07/06/18 documented as of this encounter
--- OUTSIDE RECORDS SUMMARY | 2025-05-16 19:19 | XMS_ITS | Encounter Summary ---
Author Organization [employer] Address [address] [facility] [facility] [address] 7t [place] [address] Care Team Providers Care Skate Hop Name Role Phone Steven Sher MD Primary Care Provider +1- [phone] Encounter Details Date Type Department Care Team (Late st Contact Info) Description 04/28/2023 Abstract [facility] MEDICINE [address] [place], [place] [phone] Laura Vickers Social History Tobacco Use Types [...] 10:15 AM EST Office Visit [facility] ADULT DENTAL [address] [place] [address] Godfrey Sher 08/20/2025 10:45 AM EST Office Visit [facility] MED & PEDS [address] [place] [address] Steven Sher MD [address] [place] [address] documented as of this encounter Visit Diagnoses Not on filedocumented in this encounter Additional Health Concerns Assessment Noted Time PHQ-9 Depression Total Score: 4 10/01/19 23 10:38 AM EDT documented as of this encounter Care Teams Skate Hop Relationship Specialty Start Date End Date Steven Sher MD [address] [place] [address] PCP - General Internal Medicine 07/06/18 documented as of this encounter
--- OUTSIDE RECORDS SUMMARY | 2025-05-16 19:19 | XMS_ITS | Encounter Summary ---
Author Organization [employer] Address [address] [facility] [address] 7[address] [place] [address] Care Team Providers Care Application Dba Name Role Phone Steven Sher MD Primary Care Provider +1- [phone] Encounter Details Date Type Department Care Team (Late st Contact Info) Description 12/12/2024 Orders Only [facility] MED & PEDS [address] [place], [place] [phone] Provider, MD Dylan Social History Tobacco Use [...] Description 07/03/2025 10:15 AM EST Office Visit [facility] ADULT DENTAL 505 [place] [address] Godfrey Sher 08/20/2025 10:45 AM EST Office Visit [facility] MED & PEDS [address] [place] [address] Steven Sher MD 505 [place] [address] documented as of this encounter Procedures Procedure Name Priority Date/Time Associated Diagnosis Comments HM MAMMOGRAPHY Routine 12/11/2024 9:51 AM EDT documented in this encounter Results * Hm Mammography (12/11/2024 9:51 AM EDT) Anatomical Region Laterality Modality Other Historical Provider HEALTH MAINTENANCE Final Result documented in this encounter Visit Diagnoses Not on filedocumented in this encounter Additional Health Concerns Assessment Noted Time PHQ-9 Depression Total Score: 13 025 11:41 AM EDT documented as of this encounter Care Teams Application Dba Relationship Specialty Start Date End Date Steven Sher MD [address] [place] [address] PCP - General Internal Medicine 07/06/18 documented as of this encounter
--- OUTSIDE RECORDS SUMMARY | 2025-05-16 19:19 | XMS_ITS | Encounter Summary ---
Author Organization [employer] Address [address] [facility] [address] 7[address] [place] [address] Care Team Providers Care Sales Branch Manager Name Role Phone Steven Sher MD Primary Care Provider +1- [phone] Reason for Visit * Reason Comments Med Refill Encounter Details Date Type Department Care Team (Late st Contact Info) Description 07/31/2024 Refill [facility] MEDICINE [address] [place], [place] [phone] Steven Sher MD [address] [place], [place] [phone] Social History Tobacco Use Types Packs/Day Years [...] Description 07/03/2025 10:15 AM EST Office Visit [facility] ADULT DENTAL [address] [place] [address] Godfrey Sher 08/20/2025 10:45 AM EST Office Visit [facility] MED & PEDS [address] [place] [address] Steven Sher MD [address] [place] [address] documented as of this encounter Visit Diagnoses Not on filedocumented in this encounter Additional Health Concerns Assessment Noted Time PHQ-9 Depression Total Score: 4 10/01/19 23 10:38 AM EDT documented as of this encounter Care Teams Sales Branch Manager Relationship Specialty Start Date End Date Steven Sher MD [address] [place] [address] PCP - General Internal Medicine 07/06/18 documented as of this encounter
--- OUTSIDE RECORDS SUMMARY | 2025-05-16 19:19 | XMS_ITS | Encounter Summary ---
Author Organization [employer] Address [address] [facility] [address] 7t [place] [address] Care Team Providers Care Hay Buckler Name Role Phone Steven Sher MD Primary Care Provider +1- [phone] Reason for Visit * Reason Onset Date Comments Medication Question 01/22/2025 Encounter Details Date Type Department Care Team ([facility] st Contact Info) Description 01/22/2025 Telephone [facility] MEDICINE [address] [place] [address] Steven Sher MD [address] [place], [place] [phone] Medication Question Social History Tobacco Use Types Packs/Day Years [...] encounter Miscellaneous Notes * Telephone Encounter - Diamond Jones LPN - 01/22/2025 11:21 AM EDT Pended 40 mg tablets,please send if agreeable * Telephone Encounter - Arpit Trinidad - 01/22/2025 11:17 AM EDT Tc from pt requesting atorvastatin (Lipitor) 40 mg to be sent to [id number] - [place], [place] - [address] [place] [address] [address] [facility] *pt reports although is getting prescribed 80 mg to take .5 of the tablet once a day , is finding it very difficult to break the pill in half due to her arthritis documented in this encounter Plan of Treatment Upcoming Encounters Date Type Department Care Team (Late st Contact Info) Description 07/03/2025 10:15 AM EST Office Visit [facility] ADULT DENTAL [address] [place] [address] Godfrey Sher 08/20/2025 10:45 AM EST Office Visit [facility] MED & PEDS [address] [place] [address] Steven Sher MD 505 [place] [address] documented as of this encounter Visit Diagnoses Diagnosis Hypercholesterolemia- Primary Pure hypercholesterolemia documented in this encounter Additional Health Concerns Assessment Noted Time PHQ-9 Depression Total Score: 13 025 11:41 AM EDT documented as of this encounter Care Teams Hay Buckler Relationship Specialty Start Date End Date Steven Sher MD [address] [place] [address] PCP - General Internal Medicine 07/06/18 documented as of this encounter
--- OUTSIDE RECORDS SUMMARY | 2025-05-16 19:19 | XMS_ITS | Encounter Summary ---
Author Organization [email or web address] Address [address] 7[address] [place] [address] Care Team Providers Care Quarter Section Ironer Name Role Phone Steven Sher MD Primary Care Provider [phone]- [phone] Encounter Details Date Type Department Care Team (Latest Contact Info) Description 05/16/2025 Travel Social History Tobacco Use Types Packs/Day [...] [facility] ADULT DENTAL [address] [place] [address] Godfrey Sher 08/20/2025 10:45 AM EST Office Visit [facility] MED & PEDS [address] [place] [address] Steven Sher MD 505 [place] [address] documented as of this encounter Goals Goal Patient Goal Type Associated Problems Recent Progress Patient-Stated? Author Help patients manage their type 2 diabetes Care Plan Help patients manage their type 2 diabetes No Amairani Jackson MA Weekly blood pressure task Care Plan Weekly blood pressure task No Amairani Jackson MA Help patients manage their type 2 diabetes Care Plan Help patients manage their type 2 diabetes No Amairani Jackson MA Patient has chronic kidney disease Care Plan Patient has chronic kidney disease No Amairani Jackson MA Help patients manage their type 2 diabetes Care Plan Help patients manage their type 2 diabetes Amairani Ravi MA Patient has diabetic neuropathy Care Plan Patient has diabetic neuropathy No Amairani Jackson MA Weekly blood pressure task Care Plan Weekly blood pressure task Amairani Ravi MA Weekly blood pressure task Care Plan Weekly blood pressure task Amairani Ravi MA Patient has chronic kidney disease Care Plan Patient has chronic kidney disease Amairani Ravi MA Patient has chronic kidney [...] Patient has diabetic neuropathy Amairani Ravi MA Patient has diabetic neuropathy [...] documented as of this encounter Care Teams Quarter Section Ironer Relationship Specialty Start Date End Date Steven Sher MD [address] [place] [address] PCP - General Internal Medicine 07/06/18 documented as of this encounter
--- OUTSIDE RECORDS SUMMARY | 2025-05-16 19:19 | XMS_ITS | Encounter Summary ---
Author Organization [employer] Address [address] 7t [place] [address] Care Team Providers Care Branch Specialist Name Role Phone Steven Sher MD Primary Care Provider [phone]- [phone] Reason for Visit * Reason Onset Date Comments Medication Question 11/14/2024 Encounter Details Date Type Department Care Team ([facility] st Contact Info) Description 11/14/[address] [facility] MEDICINE [address] [place] [address] Steven Sher MD [address] [place], [place] [phone] Medication Question Social History Tobacco Use Types [...] encounter Miscellaneous Notes * Telephone Encounter - Cyndy Wen RN - 11/14/2024 12:53 PM EDT TC to patient via earth moving machine operator. She is requesting the atorvastatin dose go back to 40 mg. She feels the 80 mg was too much. Explained why the increase was needed, but she would still like it decreased. Informed patient I would speak with provider to lower dose. Routing to provider. * Telephone Encounter - Arpit Trinidad - 11/14/2024 9:56 AM EDT Tc from pt requesting atorvastatin (Lipitor) to be changed back to 40mg . Pt feels increasing dosage may cause more side effects ( memory loss) and would like it changed. Back. documented in this encounter Plan of Treatment Upcoming Encounters Date Type Department Care Team (Late st Contact Info) Description 07/03/2025 10:15 AM EST Office Visit [facility] ADULT DENTAL [address] [place] [address] Godfrey Sher 08/20/2025 10:45 AM EST Office Visit [facility] MED & PEDS [address] [place], [place] [phone] Steven Sher MD 505 [place], [place] [phone] documented as of this encounter Visit Diagnoses Diagnosis Type 2 diabetes mellitus without complication, with long-term current use of insulin (HCC) documented in this encounter Additional Health Concerns Assessment Noted Time PHQ-9 Depression Total Score: 13 025 11:41 AM EDT documented as of this encounter Care Teams Branch Specialist Relationship Specialty Start Date End Date Steven Sher MD [address] [place] [address] PCP - General Internal Medicine 07/06/18 documented as of this encounter
--- OUTSIDE RECORDS SUMMARY | 2025-05-16 19:19 | XMS_ITS | Encounter Summary ---
Author Organization [employer] Address [address] 7[address] [place] [address] Care Team Providers Care Deputy Sheriff Name Role Phone Steven Sher MD Primary Care Provider [phone] Encounter Details Date Type Department Care Team (Latest Contact Info) Description 10/14/2023 Orders Only [facility] CHC MED & PEDS [address] [place], [place] [phone] tSeven Sher MD [address] [place], [place] [phone] Hypercholesterolemia (Primary Dx) Social History Tobacco Use [...] 10:15 AM EST Office Visit [facility] ADULT DENTAL [address] [place] [address] Godfrey Sher 08/20/2025 10:45 AM EST Office Visit [facility] MED & PEDS [address] [place] [address] Steven Sher MD [address] [place] [address] documented as of this encounter Visit Diagnoses Diagnosis Hypercholesterolemia- Primary Pure hypercholesterolemia documented in this encounter Additional Health Concerns Assessment Noted Time PHQ-9 Depression Total Score: 4 10/01/19 23 10:38 AM EDT documented as of this encounter Care Teams Deputy Sheriff Relationship Specialty Start Date End Date Steven Sher MD [address] [place] [address] PCP - General Internal Medicine 07/06/18 documented as of this encounter
--- OUTSIDE RECORDS SUMMARY | 2025-05-16 19:19 | XMS_ITS | Encounter Summary ---
Author Organization [employer] Address [address] [place] [address] 7 [place] [address] Care Team Providers Care Resource Conservationist Name Role Phone Steven Sher MD Primary Care Provider [phone]- [phone] Reason for Referral * Consultation (Routine) - Closed Specialty Diagnoses / Procedures Referred By Contac t Referred To Contact Audiology Diagnoses Decreased hearing of both ears Steven Sher MD [address] [place] [address] Phone: tel: fax: [facility] [address] Phone: tel: fax: Referral ID Status Reason Start Date Expiration Date V isits Requested Visits Authorized [id number] Closed Specialty Services Required 01/10/2025 01/10/2026 1 1 Encounter Details Date Type Department Care Team ([facility] st Contact Info) Description 01/10/2025 Orders Only [facility] CHC MED & PEDS [address] [place] [address] Steven Sher MD [address] [place] [address] Decreased hearing of both ears (Primary Dx) Social History Tobacco Use Types [...] Description 07/03/2025 10:15 AM EST Office Visit [facility] ADULT DENTAL [address] [place] [address] Godfrey Sher 08/20/2025 10:45 AM EST Office Visit [facility] MED & PEDS [address] [place] [address] Steven Sher MD [address] [place] [address] documented as of this encounter Procedures Procedure Name Priority Date/Time Associated Diagnosis Comments AMB REFERRAL TO AUDIOLOGY Routine 01/29/2025 Decreased hearing of both ears documented in this encounter Results * Referral to Audiology (01/29/2025) us Steven Sher MD OUTPATIENT REFERRAL ORDERAB LES Final Result documented in this encounter Visit Diagnoses Diagnosis Decreased hearing of both ears- Primary documented in this encounter Additional Health Concerns Assessment Noted Time PHQ-9 Depression Total Score: 13 025 11:41 AM EDT documented as of this encounter Care Teams Resource Conservationist Relationship Specialty Start Date End Date Steven Sher MD [address] [place] [address] PCP - General Internal Medicine 07/06/18 documented as of this encounter
--- OUTSIDE RECORDS SUMMARY | 2025-05-16 19:19 | XMS_ITS | Encounter Summary ---
Author Organization [employer] Address [address] [place] [address] Care Team Providers Care Combatant Swimmer Name Role Phone Steven Sher MD Primary Care Provider [phone]- [phone] Encounter Details Date Type Department Care Team (Late st Contact Info) Description 11/13/2024 Orders Only [facility] CHC MED & PEDS [address] [place], [place] [phone] Steven Sher MD [address] [place], [place] [phone] Type 2 diabetes mellitus without complication, with long-term current use of insulin ([facility]) (Primary Dx); Hypercholesterolemia Social History Tobacco Use [...] Description 07/03/2025 10:15 AM EST Office Visit [facility] ADULT DENTAL [address] [place] [address] Godfrey Sher 08/20/2025 10:45 AM EST Office Visit [facility] MED & PEDS [address] [place] [address] Steven Shre MD [address] [place] [address] documented as of this encounter Visit Diagnoses Diagnosis Type 2 diabetes mellitus without complication, with long-term current use of insulin (HCC)- Primary Hypercholesterolemia Pure hypercholesterolemia documented in this encounter Additional Health Concerns Assessment Noted Time PHQ-9 Depression Total Score: 13 025 11:41 AM EDT documented as of this encounter Care Teams Combatant Swimmer Relationship Specialty Start Date End Date Steven Sher MD [address] [place] [address] PCP - General Internal Medicine 07/06/18 documented as of this encounter
--- OUTSIDE RECORDS SUMMARY | 2025-05-16 19:20 | XMS_ITS | Encounter Summary ---
Author Organization [employer] Address [address] [place] [address] 7 [place] [address] Care Team Providers Care Education Paraprofessional Name Role Phone Steven Sher MD Primary Care Provider Reason for Visit * Reason Comments Med Refill Encounter Details Date Type Department Care Team (Late st Contact Info) Description 12/07/2022 Refill [facility] MEDICINE [address] [place] [address] Steven Sher MD [address] [place], [place] [phone] Social History Tobacco Use Types Packs/Day Years [...] Description 07/03/2025 10:15 AM EST Office Visit [facility] CHC ADULT DENTAL [address] [place] [address] Godfrey Sher 08/20/2025 10:45 AM EST Office Visit [facility] MED & PEDS [address] [place], [place] [phone] Steven Sher MD [address] [place] [address] documented as of this encounter Visit Diagnoses Not on filedocumented in this encounter Additional Health Concerns Assessment Noted Time PHQ-9 Depression Total Score: 4 10/01/19 23 10:38 AM EDT documented as of this encounter Care Teams Education Paraprofessional Relationship Specialty Start Date End Date Steven Sher MD [address] [place] [address] G[place] Harmon [address] PCP - General Internal Medicine 07/06/18 documented as of this encounter
--- OUTSIDE RECORDS SUMMARY | 2025-05-16 19:20 | XMS_ITS | Encounter Summary ---
Author Organization [email or web address] Address [address] [facility] 7t [place] [address] Care Team Providers Care Curve Saw Operator Name Role Phone Steven Sher MD Primary Care Provider [phone]- [phone] Reason for Visit * Reason Comments Med Refill Encounter Details Date Type Department Care Team ([facility] st Contact Info) Description 09/06/2024 Refill [facility] CHC MED & PEDS [address] [place] [address] Steven Sher MD [address] [place] [address] Type 2 diabetes mellitus with diabetic neuropathy, with long-term current use of insulin ([facility]) Social History Tobacco Use Types Packs/Day Years [...] 10:15 AM EST Office Visit [facility] ADULT DENTAL [address] [place] [address] Godfrey Sher 08/20/2025 10:45 AM EST Office Visit [facility] MED & PEDS [address] [place] [address] Steven Sher MD 505 [place] [address] documented as of this encounter Visit Diagnoses Diagnosis Type 2 diabetes mellitus with diabetic neuropathy, with long-term current use of insulin (HCC) documented in this encounter Additional Health Concerns Assessment Noted Time PHQ-9 Depression Total Score: 4 10/01/19 23 10:38 AM EDT documented as of this encounter Care Teams Curve Saw Operator Relationship Specialty Start Date End Date Steven Sher MD [address] [place] [address] PCP - General Internal Medicine 07/06/18 documented as of this encounter
--- OUTSIDE RECORDS SUMMARY | 2025-05-16 19:20 | XMS_ITS | Encounter Summary ---
Author Organization [employer] [facility] Address [address] [facility] 7 [place] [address] Care Team Providers Care Bone Tender Name Role Phone Steven Sher MD Primary Care Provider Encounter Details Date Type Department Care Team (Latest Contact Info) Description 02/03/2021 Abstract [facility] CONVERSION[facility] Dental, Provider, DDS Social History [...] 10:15 AM EST Office Visit [facility] ADULT DENTAL [address] [place] [address] Godfrey Sher 08/20/2025 10:45 AM EST Office Visit [facility] MED & PEDS [address] [place] [address] Stveen Sher MD [address] [place] [address] documented as of this encounter Visit Diagnoses Not on filedocumented in this encounter Care Teams Bone Tender Relationship Specialty Start Date End Date Steven Sher MD [address] [place] [address] PCP - General Internal Medicine 07/06/18 documented as of this encounter
--- OUTSIDE RECORDS SUMMARY | 2025-05-16 19:20 | XMS_ITS | Encounter Summary ---
Author Organization [employer] Address [address] [facility] 7t [place] [address] Care Team Providers Care Respiratory Therapy Assistant Name Role Phone Steven Sher MD Primary Care Provider [phone]- [phone] Reason for Visit * Reason Comments Med Refill Encounter Details Date Type Department Care Team ([facility] st Contact Info) Description 03/05/2025 Refill [facility] MED & PEDS [address] [place] [address] Steven Sher MD [address] [place] [address] Social History Tobacco Use Types Packs/Day Years [...] Office Visit [facility] ADULT DENTAL [address] [place] [address] Godfrey Sher 08/20/2025 10:45 AM EST Office Visit [facility] MED & PEDS [address] [place] [address] Steven Sher MD [address] [place] [address] documented as of this encounter Visit Diagnoses Not on filedocumented in this encounter Additional Health Concerns Assessment Noted Time PHQ-9 Depression Total Score: 16 025 10:43 AM EDT documented as of this encounter Care Teams Respiratory Therapy Assistant Relationship Specialty Start Date End Date Steven Sher MD [address] [place] [address] PCP - General Internal Medicine 07/06/18 documented as of this encounter
--- OUTSIDE RECORDS SUMMARY | 2025-05-16 19:20 | XMS_ITS | Encounter Summary ---
Author Organization [employer] Address [address] [place] [address] Care Team Providers Care Color Maker Formulator Name Role Phone Steven Sher MD Primary Care Provider [phone] Encounter Details Date Type Department Care Team (Late st Contact Info) Description 08/17/2024 Orders Only [facility] CHC MED & PEDS [address] [place], [place] [phone] Steven Sher MD [address] [place] [address] Tinea pedis of both feet Social History [...] 10:15 AM EST Office Visit [facility] ADULT DENTAL [address] [place] [address] Godfrey Sher 08/20/2025 10:45 AM EST Office Visit [facility] MED & PEDS [address] [place] [address] Steven Sher MD [address] [place] [address] documented as of this encounter Visit Diagnoses Diagnosis Tinea pedis of both feet documented in this encounter Additional Health Concerns Assessment Noted Time PHQ-9 Depression Total Score: 4 10/01/19 23 10:38 AM EDT documented as of this encounter Care Teams Color Maker Formulator Relationship Specialty Start Date End Date Steven Sher MD [address] [place] [address] PCP - General Internal Medicine 07/06/18 documented as of this encounter
--- OUTSIDE RECORDS SUMMARY | 2025-05-16 19:20 | XMS_ITS | Encounter Summary ---
Demographics Address [address] [place] [address] Mobile Phone Home Phone Preferred Language es Marital Status Single Scientology Affiliation Unknown Race White Ethnic Group Unknown Author Organization [employer] Address [address] [place] [address] Care Team Providers Care Mathematician Name Role Phone Steven Sher MD Primary Care Provider [phone] Encounter Details Date Type Department Care Team (Late st Contact Info) Description 10/13/2024 Telephone [facility] MEDICINE [address] [place] [address] Steven Sher MD [address] [place], [place] [phone] Social History Tobacco Use Types Packs/Day Years [...] Description 07/03/2025 10:15 AM EST Office Visit [facility] ADULT DENTAL 505 [place] [address] Godfrey Sher 08/20/2025 10:45 AM EST Office Visit [facility] MED & PEDS [address] [place] [address] Steven Sher MD [address] [place] [address] documented as of this encounter Visit Diagnoses Not on filedocumented in this encounter Additional Health Concerns Assessment Noted Time PHQ-9 Depression Total Score: 4 10/01/19 23 10:38 AM EDT documented as of this encounter Care Teams Mathematician Relationship Specialty Start Date End Date Steven Sher MD [address] [place] [address] PCP - General Internal Medicine 07/06/18 documented as of this encounter
--- OUTSIDE RECORDS SUMMARY | 2025-05-16 19:20 | XMS_ITS | Encounter Summary ---
Author Organization [employer] Address [address] [place] [address] Care Team Providers Care First Line Production Supervisor Name Role Phone Steven Sher MD Primary Care Provider [phone]- [phone] Encounter Details Date Type Department Care Team (Late st Contact Info) Description 03/06/2025 Orders Only [facility] CHC MED & PEDS [address] [place], [place] [phone] Steven Sher MD [address] [place], [place] [phone] Diabetic polyneuropathy associated with type 2 diabetes mellitus (CMS/HCC) (Primary Dx) Social History Tobacco Use Types [...] Visit [facility] ADULT DENTAL [address] [place] [address] Godfrey Sher 08/20/2025 10:45 AM EST Office Visit [facility] MED & PEDS [address] [place] [address] Steven Sher MD [address] [place] [address] documented as of this encounter Visit Diagnoses Diagnosis Diabetic polyneuropathy associated with type 2 diabetes mellitus (HCC)- Primary documented in this encounter Additional Health Concerns Assessment Noted Time PHQ-9 Depression Total Score: 16 025 10:43 AM EDT documented as of this encounter Care Teams First Line Production Supervisor Relationship Specialty Start Date End Date Steven Sher MD [address] [place] [address] PCP - General Internal Medicine 07/06/18 documented as of this encounter
--- OUTSIDE RECORDS SUMMARY | 2025-05-16 19:20 | XMS_ITS | Clinical Summary ---
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 gabapentin (Neurontin) 100 MG capsule Take 2 capsules by mouth every 8 (eight) hours. 04/22/20 22 Active Trulicity 0.75 MG/0.5ML solution pen-injector 01/17/20 22 Active methocarbamol (Robaxin) 750 MG tablet Take 1 tablet by mouth every 6 (six) hours. 05/25/20 22 Active glimepiride (Amaryl) 1 MG tablet Take 1 tablet by mouth every 12 (twelve) hours. 05/25/20 22 Active FLUoxetine (PROzac) 20 MG tablet Take 20 mg by mouth. 03/04/20 12 Active SUMAtriptan (Imitrex) 25 MG tablet TAKE 1 TABLET BY MOUTH 1 TIME AT ONSET OF MIGRAINE WITH FLUID. MAY REPEAT AFTER 2 HOURS. IF HEADACHE RETURNS. NOT TO EXCEED 200 MGIN 24 HOURS 10/28/19 22 Active zoster vaccine-recombinant adjuvanted (Shingrix) 50 MCG/0.5ML vaccine Inject 0.5 mL into the shoulder, thigh, or buttocks. 06/05/20 19 Active Misc. Devices misc To wear daily 07/06/19 19 Active hydrocortisone (Anusol-HC) 2.5 % rectal cream Insert into the rectum 2 times daily. 28 g 10/01/19 23 Active Additional Information Patient not taking.Reported on 09/04/2024 metFORMIN (Glucophage) 500 MG tablet Take 1 tablet (500 mg) by mouth every 12 (twelve) hours. 60 tablet 11 10/12/19 24 Active Additional Information Patient not taking.Reported on 09/04/2024 clonazePAM (KlonoPIN) 0.5 MG tablet Take 0.5 mg by mouth 2 times daily. 08/29/19 24 Active fenofibrate (Tricor) 48 MG tabletIndications:H ypercholesterolemia Take 1 tablet (48 mg) by mouth Once per day. 30 tablet 11 01/25/20 24 Active ezetimibe (Zetia) 10 MG tabletIndications:H ypercholesteremia Take 1 tablet (10 mg) by mouth Once per day. 30 tablet 11 04/26/20 24 Active Sodium Fluoride 1.1 % creamIndications:De ntin hypersensitivity [place] teeth for 2 minutes, morning and night. Spit, do not rinse. Do not eat or drink anything for 30 minutes following use. 112 g 06/22/20 24 Active Diclofenac Sodium 1 % gelIndications:Prim mingo osteoarthritis of both knees Apply (2G) by topical route 2 times every day to the affected area(s) 100 g 08/15/19 25 Active Additional Information Patient not taking.Reported on 09/04/2024 clotrimazole (Lotrimin) 1 % creamIndications:Ti patrick pedis of both feet Apply topically 2 times daily. 30 g 08/17/19 25 Active Additional Information Patient not taking.Reported on 09/04/2024 empagliflozin (Jardiance) 10 MG TAKE 1 TABLET BY MOUTH EVERY MORNING 30 tablet 1 09/07/19 25 Active glucose blood (FREESTYLE LITE) test stripIndications:Ty pe 2 diabetes mellitus with diabetic neuropathy, with long-term current use of insulin ([facility]) FS fasting and 2 hours after dinner. 100 each 09/07/19 25 Active semaglutide (Ozempic) 2 MG/1.5ML solution pen-injectorIndicat ions:Type 2 diabetes mellitus without complication, with long-term current use of insulin ([facility]) Inject 0.5 mg under the skin 1 (one) time per week. 1 each 12/06/19 25 Active lisinopril 10 MG tabletIndications:T ype 2 diabetes mellitus without complication, with long-term current use of insulin ([facility]),Primary hypertension TAKE 1 TABLET BY MOUTH EVERY DAY 30 tablet 11 01/26/20 25 Active atorvastatin (Lipitor) 40 MG tabletIndications:H ypercholesterolemia Take 1 tablet (40 mg) by mouth Once per day. 30 tablet 11 02/09/20 25 026 Active bacitracin (RA Bacitracin) 500 UNIT/GM ointmentIndications :Post herpetic neuralgia Apply topically 2 times daily. 14 g 02/09/20 25 Active Multiple Vitamins-Minerals (PreserVision AREDS 2) capsule Take 1 capsule by mouth 2 times daily. 01/27/20 25 Active amitriptyline (Elavil) 10 MG tabletIndications:D iabetic polyneuropathy associated with type 2 diabetes mellitus (HCC) Take 1 tablet (10 mg) by mouth at bedtime. 90 tablet 3 03/06/20 25 026 Active empagliflozin (Jardiance) 25 MGIndications:Type 2 diabetes mellitus without complication, with long-term current use of insulin (HCC) Take 1 tablet (25 mg) by mouth Once per day. 30 tablet 08/10/19 025 Discontin ued(Thera py completed ) Active Problems Problem Noted Date Diagnosed Date JASON (generalized anxiety disorder) 02/22/2025 Assessment & Plan (02/27/2025 2:34 PM EDT): During IBH Consult Anayeli presenting with excessive worry/anxiety, difficulty controlling worry, anxiety/worry associated to restlessness and/or feeling keyed-up/On edge , easily fatigued , difficulty concentrating and/or mind going blank , irritability, muscle tension , and sleep disturbance difficulty falling asleep, Fear , and sense of dread and Fear of being exposed to scrutiny by others (ex. conversation, meeting unfamiliar people), Fear of being observed, Social situations almost always provoke fear/anxiety, Avoidance of social situations ; for a period of 0-6 mo, for most or all symptoms in the context of family issues, illness or family illness, and lack of trust in relationships. Patient with severity of sxs described by the patient as baseline. Her medical conditions are also exacerbating symptoms. Lack of social/family support is identified as trigger. Pt reports her lack of trust in other has being an issue for her leading to isolation from others. Pt tried medication in the past but due to SE pt self-discharged. Her sense of esa and spirituality is identified as strength. Vasomotor symptoms due to menopause 02/13/2025 Breast pain in female 02/13/2025 Assessment & Plan (02/13/2025 10:24 AM EDT): Patient with non cyclic breast pain bilaterally, fibrosis on exam. Reviewed screening mammo, will send diagnostic mammo following [facility] guidelines. Symptomatic management by PCP. Recommend: Wearing a proper fitting bra reduces tension on the Librado ligaments in individuals with large breasts and may relieve symptoms of cyclic mastalgia Recommended evening primrose oil, but evidence is lacking. Primary hypertension 04/26/2024 Diabetic polyneuropathy asso ciated [...] organization. Date Type Department Care Team Description 05/16/2025 9:00 AM EST Office Visit [facility] [address] [place] [address] Steven Sher MD Type 2 diabetes mellitus with diabetic polyneuropathy, without long-term current use of insulin (HCC) (Primary Dx); JASON (generalized anxiety disorder); Hypercholesterolemia; Primary hypertension 05/16/2025 Travel 05/15/2025 Telephone [facility] [address] [place] [address] Steven Sher MD Chart Prep 04/24/2025 Telephone [facility] [address] [place] [address] Steven Sher MD Referral 03/06/2025 Orders Only [facility] [address] [place] [address] Steven Sher MD Diabetic polyneuropathy associated with type 2 diabetes mellitus (CMS/HCC) (Primary Dx) 03/05/2025 Refill [facility] [address] [place] [address] Steven Sher MD 03/01/2025 Telephone [facility] [address] [place] [address] Steven Sher MD Med Refill 02/13/2025 9:40 AM EDT Office Visit [facility] [address], [place] [phone] Jeaneth Barillas MD Breast pain in female (Primary Dx) 02/13/2025 Travel from Last 3 Months Immunizations Immunization Administration Dates Next Due Influenza Injectable Quadriv [...] the past 12 months, has t he [employer], gas, oil or water company threatened to [...] Mass Index 27.8 05/16/2025 9:10 AM EST Plan of Treatment Upcoming Encounters Date Type Department Care Team (Late st Contact Info) Description 07/03/2025 10:15 AM EST Office Visit [facility] [address] [place] [phone] Godfrey Sher 08/20/2025 10:45 AM EST Office Visit [facility] [address] [place] [address] Steven Sher MD [address] [place] [phone] Health Maintenance Due Date Last Done Comments CT Colonography 1960 Colonoscopy 1960 FIT 1960 HIV Screening 1960 Sigmoidoscopy 1960 Disability Screening 1960 Pap Smear 08/05/2024 08/05/2021 Dental Oral Exam 12/22/2024 06/22/2024, , 07/05/2023, Additional history exists FOBT 05/03/2025 05/03/2024 Dental X-Ray: Bitewings 06/23/2025 06/22/20 24, 07/05/2023, 09/25/2022, Additional history exists Dental Prophylaxis 07/01/2025 12/28/2024, 1 08/23/2023, 12/17/2023, Additional history exists Depression Monitoring 08/25/2025 02/22/2025, 025 Alcohol/Substance Use Screening 11/07/2025 11/07/2024 SDOH Screening 11/07/2025 11/07/2024 Diabetes: Hemoglobin A1C 11/13/2025 025, 02/08/2025, 11/07/2024, Additional history exists Mammogram 12/11/2025 12/11/2024, 11/26, 12/11/2024, Additional history exists Influenza Vaccine (#1) 2025 05/23/2018, 2017 Postponed from 02/26/2025 (Patient Refused) Diabetes: Urine Protein Screening 02/08/2026 02/08/2025, 01/24/2024, 08/09/2020, Additional history exists COVID-19 Vaccine ( season) 2026 06/05/2022, 06/04/2021, 11/28/2020, Additional history exists Postponed from 02/26/2025 (Patient Refused) Diabetes: Foot Exam 05/16/2026 05/16/2025 Lipid Panel 05/16/2026 05/16/2025, 10/26, 01/24/2024, Additional history exists Tobacco Screening 05/16/2026 05/16/2025 Cervical Cancer Screening 08/05/2026 HPV/Cotest 08/05/2026 08/05/2021 Eye Exam 12/25/2026 12/25/2024 Colorectal Cancer Screening 05/03/2027 FIT DNA/Cologuard 05/03/2027 [...] on patient's age to complete this topic Goals Goal Patient Goal Type Associated Problems [...] has diabetic neuropathy No Amairani Jackson MA Procedures Procedure Name Priority Date/Time Associated Diagnosis Comments LIPID PANEL, STANDARD Routine 05/16/2025 10:11 AM EST Hypercholesterolemi a POCT GLUCOSE Routine 05/16/2025 9:14 AM EST Type 2 diabetes mellitus with diabetic polyneuropathy, without long-term current use of insulin (HCC) POCT GLYCATED HEMOGLOBIN, TOTAL Routine 05/16/2025 9:13 AM EST Type 2 diabetes mellitus with diabetic polyneuropathy, without long-term current use of insulin (HCC) ALBUMIN, RANDOM URINE W/CREATININE Routine 02/08/2025 11:15 AM EDT Type 2 diabetes mellitus without complication, with long-term current use of insulin ([facility]) Full PROPHYLAXIS - ADULT Routine 12/28/2024 10:00 AM EDT DIABETES EYE EXAM Routine 12/25/2024 1:47 PM EDT HM MAMMOGRAPHY Routine 12/11/2024 9:51 AM EDT INTRAORAL - COMPLETE SERIES OF RADIOGRAPHIC IMAGES Routine 06/22/2024 10:00 AM EST Dentin hypersensitivity Full coverage crown needed for tooth at risk for fracture PERIODIC ORAL EVALUATION - ESTABLISHED PATIENT Routine 06/22/2024 10:00 AM EST Dentin hypersensitivity Full coverage crown needed for tooth at risk for fracture LAB COLOGUARD COLON CANCER SCREEN Routine 05/03/2024 12:00 PM EST Screening for colon cancer HEPATITIS C AB W/REFL TO HCV RNA, QN, PCR Routine 01/26/2024 9:28 AM EDT Transaminitis THINPREP IMAGING PAP AND HPV MRNA E6/E7 WITH REFLEX TO HPV 16,18/45 Routine 08/05/2021 10:18 AM EST from Last 3 Months or Most Recently Relevant to Health Maintenance Results * (ABNORMAL) Lipid Panel, Standard (05/16/2025 10:11 AM EST) Triglycerides 178(H) <150 mg/dL [facility] Comment:Desirable Triglyceri de: less than 150 mg/dLBorderline High Triglyceride 150-199 mg/dLHigh Triglyceride: 200-499 mg/dLVery High Triglyceride: greater than or equal to 5OO mg/dL Cholesterol 187 <200 mg/dL [facility] Comment:Desirable Cholestero l: less than 200 mg/dLBorderline High Cholesterol: 200-239 mg/dLHigh Cholesterol: greater than 239 mg/dL LDL Cholesterol Calculated 112(H) <100 mg/dL [facility] Comment:Desirable LDL: less than 100 mg/dLNear Optimal/Above Optimal LDL: 110- 129 mg/dLBorderline High LDL: 130-159 mg/dLHigh LDL: 160-189 mg/dLVery High LDL: greater than or equal to 190 mg/dL HDL Cholesterol 40(L) >40 mg/dL [facility] Comment:Desirable HDL: great er than 40 mg/dL Note: This HDL assay may give artificially low results in patients with liver disease. Blood Venous blood specimen / Unknown 05/16/2025 10:11 AM EST 05/16/2025 2:06 PM EST Steven Sehr MD LAB BLOOD ORDERABLES Final Result [facility] [address] [place] [phone] * POCT Glucose (05/16/2025 9:14 AM EST) Glucose Blood, POC 167 60 - 200 mg/dL [employer] Lot # [id number] Comment:fasting Lot# Expiration Date 282, Blood Capillary blood specimen / Unknown 05/16/2025 9:14 AM EST Steven Sher MD POINT OF CARE TEST ENTER/ED IT ORDERABLES Final Result * POCT Hgb A1c (05/16/2025 9:13 AM EST) Hemoglobin A1C 5.4 4.0 - 5.7 % QC Media Lot # [id number] Lot# Expiration Date [id number] Blood 05/16/2025 9:13 AM EST Steven Sher MD POINT OF CARE TEST ENTER/ED IT ORDERABLES Final Result * Albumin, Random Urine W/Creatinine (02/08/2025 11:15 AM EDT) Creatinine, Urine 52.68 mg/dL [facility] Microalbumin Urine 8.0 mg/L [facility] Microalbum Creatinine Ratio Ur 15.1 <30 ug/mg cr [facility] Comment:Albumin/Creatinine R atio Reference Ranges: Normal: < 30 ug/mg creatinine Microalbuminuria: 30 - 300 ug/mg creatinineClinical Albuminuria: > 300 ug/mg creatinine Urine (Urine, Random) 02/08/2025 11:15 AM EDT 02/08/2025 1:59 PM EDT Steven Sher MD LAB URINE ORDERABLES Final Result [facility] [address] [place] [phone] * Diabetes Eye Exam (12/25/2024 1:47 PM EDT) Historical Provider HEALTH MAINTENANCE Final Result * Mammography (12/11/2024 9:51 AM EDT) Anatomical Region Laterality Modality Other Historical Provider HEALTH MAINTENANCE Final Result * Cologuard?? colon cancer screening (05/03/2024 12:00 PM EST) Cologuard Result Negative Negative 05/11/20 6:58 PM EST [facility] (CLIA #:[id number]) Comment: NEGATIVE TEST RESULT. A negative Cologuard result indicates a low likelihood that a colorectal cancer (CRC) or advanced adenoma (adenomatous polyps with more advanced pre-malignant features) is present. The chance that a person with a negative Cologuard test has a colorectal cancer is less than 1 in 1500 (negative predictive value >99.9%) or has an advanced adenoma is less than 5.3% (negative predictive value 94.7%). These data are based on a prospective cross-sectional study of 10,000 individuals at average risk for colorectal cancer who were screened with both Cologuard and colonoscopy. (Angeles Sotelo al, N Engl J Med 2014;370(14):3584-2769) The normal value (reference range) for this assay is negative. COLOGUARD RE-SCREENING RECOMMENDATION: Periodic colorectal cancer screening is an important part of preventive healthcare for asymptomatic individuals at average risk for colorectal cancer. Following a negative Cologuard result, the [place] [employer] and U.S. Multi-Society Task Force screening guidelines recommend a Cologuard re-screening interval of 3 years. References: [place] [employer] Guideline for Colorectal Cancer Screening: https://www.cancer.org/cancer/pamjf-kattvm-rnefve/jasjupwni-iivklyxfb-tjezjos/ac s-rec ommendations.html.; Jam PETERSON, Augusto ROJAS, Racquel KEYES, Colorectal Cancer Screening: Recommendations for Physicians and Patients from the U.S. Multi-Society Task Force on Colorectal Cancer Screening , Am J Gastroenterology 2017; 112:6480-1902. TEST DESCRIPTION: Composite algorithmic analysis of stool DNA-biomarkers with hemoglobin immunoassay. Quantitative values of individual biomarkers are not [...] (Angeles Sotelo al, N Engl J Med 2014;370(14):9588-3285.) Cologuard may produce a false negative or false positive result (no colorectal cancer or precancerous polyp present at colonoscopy follow up). A negative Cologuard test result does not guarantee the absence of CRC or advanced adenoma (pre-cancer). The current Cologuard screening interval is every 3 years. ([place] [employer] and U.S. Multi-Society Task Force). Cologuard performance data in a 10,000 patient pivotal study using colonoscopy as the reference method can be accessed at the following location: www.exactlabs.com/results. Additional description of the Cologuard test process, warnings and precautions can be found at www.cologuard.com. Stool specimen (specimen) 05/03/2024 12:00 PM EST 05/04/2024 12:20 PM EST us Steven Sher MD LAB MOLECULAR DIAGNOSTICS O RDERABLES Final Result Performing Organization Address City/[facility]/ZIP Co de Phone Number [facility] (CLIA #:[id number]) [address] [place] [address], * Hepatitis C Antibody with Reflex to HCV, RNA, Quantitative, Real-Time PCR (01/26/2024 9:28 AM EDT) Hepatitis C Antibody Nonreactive Nonreactive [facility] Comment:Antibodies to HCV no t detected; does not exclude early acuteHCV infection. Blood Venous blood specimen / Unknown 01/26/2024 9:28 AM EDT 01/26/2024 2:24 PM EDT us Steven Sher MD LAB BLOOD ORDERABLES Final Result Performing Organization Address [facility] Co de Phone Number [facility] [address] [place] [phone] * THINPREP TIS PAP AND HPV mRNA E6/E7 WITH REFLEX TO HPV 16,18/45 (08/05/2021 10:18 AM EST) Clinical Information: JUAN AT [address] [facility] COMMENT SEE COMMENT [facility] Comment: EXPLANATORY NOTE: The Pap is a screening test for cervical cancer. It is not a diagnostic test and is subject to false negative and false positive results. It is most reliable when a satisfactory sample, regularly obtained, is submitted with relevant clinical findings and history, and when the Pap result is evaluated along with historic and current clinical information. COMMENT: This Pap test has been evaluated with computer assisted technology. [facility] Member Of Technical Staff: SEE COMMENT [facility] Comment: DMM, CT(ASCP) CT screening location: [address] [address] HPV nRNA E6/E7 Not Detected Not Detected [facility] Comment: Methodology: Trades Helper-Mediated Amplification This assay detects E6/E7 viral messenger RNA (mRNA) from 14 high-risk HPV types (16,18,31,33,35,39,45,51,52,56,58,59,66,68). The analytical performance characteristics of this assay have been determined by [employer]. The modifications have not been cleared or approved by the FDA. This assay has been validated pursuant to the CLIA regulations and is used for clinical purposes. For additional information, please refer to http://education.[employer]/faq/FFV666x7 (This link if provided for information/ educational purposes only.) Interpretation/Re sult: Negative for intraepithelial lesion or malignancy. [facility] LMP: NONE GIVEN [facility] Prev. BX: NONE GIVEN [facility] Prev. PAP: 2018 NIL/NEG [facility] SOURCE: None given [facility] Statement Of Adequacy: SEE COMMENT [facility] Comment: Satisfactory for evaluation. Endocervical/transformation zone component present. Age and/or menstrual status not provided 08/05/2021 10:1 8 AM EST us [facility] PATHOLOGY ORDERABLES Final Result [facility] [address] from Last 3 Months or Most Recently Relevant to Health Maintenance Additional Health Concerns Active Problems Noted Date [...] neuropathy 05/15/2025 Patient has diabetic neuropathy 05/15/2025 Insurance [facility] Care Teams Rubber Production Machine Operator Relationship Specialty Start Date End Date Steven Sher MD [address] [place] [address] GINA Andrew [id number] PCP - General Internal Medicine 07/06/18
== END 2025-05-16 10:09 | disposition home or self-care (01) ==
LOC: HO.CHCLDS 10:08
PROVIDERS: Visit Provider Internal Medicine
DX: E78.00 Pure hypercholesterolemia, unspecified (principal)
CPT/HCPCS: 36415; 80061